=== PATIENT | female | born 1925 | race Caucasian/White ===

== ENCOUNTER 2016-06-04 11:27 | Inpatient (IN) | payer MEDICARE ==
[2016-06-04] MEDS ORDERED: Sodium Chloride 0.9% 5 ML Syringe FLUSH PRN ×2 (12:16→12:20)
[2016-06-04] MEDS ORDERED: Magnesium Hydroxide 400 MG/5 ML Susp 30 ML Cup PO PRN (12:16)
[2016-06-04] MEDS ORDERED: Sodium Chloride 0.9% 1,000 ML IV SCH (12:16)
[2016-06-04] MEDS ORDERED: Saliva Substitute Oral Spray 120 ML Bottle MUCMEM PRN (12:16)
[2016-06-04] MEDS: hydrALAZINE 10 MG Tab PO SCH ×2 (13:54→20:39)
[2016-06-04] MEDS: LEVOBUNOLOL 0.5% EYEBOTH SCH (17:43)
[2016-06-04] MEDS: Omeprazole 20 MG Cap.CR PO SCH (17:43)
[2016-06-04] MEDS: Latanoprost 0.005% Ophth Soln 2.5 ML Bottle EYEBOTH SCH (20:38)
[2016-06-04] MEDS: Losartan 50 MG Tab PO SCH (20:39)
[2016-06-05] MEDS: hydrALAZINE 10 MG Tab PO SCH ×2 (01:15→08:01)
[2016-06-05] MEDS: Acetaminophen 500 MG Tab PO PRN (04:16)
[2016-06-05] MEDS: Omeprazole 20 MG Cap.CR PO SCH ×2 (06:40→18:05)
[2016-06-05] MEDS: Levothyroxine 75 MCG Tab PO SCH (06:40)
[2016-06-05] MEDS: Multivitamins with Minerals/Iron/Folic Acid/Lycopene Tab PO SCH (08:01)
[2016-06-05] MEDS: Aspirin 81 MG Tab.EC PO SCH (08:02)
[2016-06-05] MEDS: Docusate Sodium 100 MG Cap PO SCH (08:02)
[2016-06-05] MEDS: Simvastatin 20 MG Tab PO SCH (08:03)
[2016-06-05] MEDS: LEVOBUNOLOL 0.5% EYEBOTH SCH ×2 (08:09→18:05)
[2016-06-05] MEDS: Metoprolol Succinate 25 MG Tab.ER PO SCH (09:16)
[2016-06-05] MEDS: Losartan 50 MG Tab PO SCH ×2 (09:18→20:28)
--- NOTE | 2016-06-05 10:32 | PCM.HP ---
H&P History of Present Illness - General Date of Service: 06/04/16 Admit Problem/Dx: Admission Diagnosis/Problem Admission Diagnosis/Problem Dizziness Source of Information: Patient, Old records, Provider, RN History Limitations: Reports: No limitations - History of Present Illness Initial Comments - Free Text/Narative: This very pleasant 89-year-old female was placed in swing bed status today mainly due to needing help with ambulation due to high fall risk due to dizziness. she was initially admitted in acute care status due to significant elevations in her systolic blood pressure which had been recalcitrant on many medications lasting for many months now. Yolie had an ambulatory blood pressure study about 2 months ago. She had been on Clonidine and Benicar. Day prior to admission the clonidine was discontinued by her bill hiker. Blood pressure prior to admission was fluctuating slightly. Orthostatic blood pressures lying down 152/82, sitting 164/80, standing 182/84 with a heart rate of 68 consistently. Patient was asymptomatic lying and sitting however upon standing she became lightheaded. Patient had not been taking any Lasix since she had not been having any swelling. Renal Doppler 2 days prior to acute admission for uncontrolled hypertension-no evidence of renal artery stenosis other than a benign cyst on her right kidney. Patient reported that when she took clonidine she felt like she was more dizzy. Major complaint was dizziness after taking these medications. Patient reports she has to sit down and hold onto walker because of the dizziness-patient has had hospitalizations in the past for her blood pressure systolically over 200. our initial plan on acute admission was to check serum aldosterone and aldosterone 24-hour urine studies to assess her for pheochromocytoma. she was recently started on hydralazine with some improvement. Outdoor Studies Professor did discontinue her clonidine day prior to admission and started her on low-dose metoprolol. Urologist, Dr. Bolton, was concerned about being too aggressive with her blood pressure due to the high-risk of falls/weakness- patient also lives alone and her daughter is currently out of town. Patient had also recently been treated for an upper respiratory infection on May 21 secondary to bacterial bronchitis-doxycycline. It was felt that she should be placed in swing bed status daily due to her dizziness and unsteady gait and for safety purposes. Physical therapy felt that they could work with her Right Hand Pain Score (Numeric/FACES): 6 - Related Data Allergies/Adverse Reactions: Allergies Allergy/AdvReac Type Severity Reaction Status Date / Time adhesive tape Allergy Cannot Verified 06/04/16 13:47 Remember Penicillins Allergy Rash Verified 06/04/16 13:47 Sulfa (Sulfonamide Allergy Rash Verified 06/04/16 13:47 Antibiotics) Home Medications: Home Meds Aspirin [Halfprin] 81 mg PO DAILY 08/24/13 [History] Latanoprost [Xalatan 0.005% Ophth Soln] 1 drop EYEBOTH BEDTIME 08/24/13 [History ] Multivitamin [Multi-Vitamin Daily] 1 each PO DAILY 08/24/13 [History] Lansoprazole [Prevacid] 30 mg PO BIDAC 12/24/15 [History] Acetaminophen [Tylenol Extra Strength] 500 mg PO Q4H PRN 02/13/16 [History] Baclofen [Lioresal] 5 mg PO TID PRN 02/13/16 [History] Furosemide [Lasix] 20 mg PO DAILY PRN 02/13/16 [History] Levobunolol [Betagan 0.5% Ophth Soln] 1 drop EYEBOTH BID 02/13/16 [History] Olmesartan [Benicar] 20 mg PO BID 02/13/16 [History] Pitavastatin [Livalo] 2 mg PO DAILY 02/13/16 [History] Carboxymethylcellulose/Lytes [Cj-Stir Oral [place]] 1 spray ORAL.INH Q4H PRN [History] Docusate Sodium [Colace] 100 mg PO DAILY 05/30/16 [History] Metoprolol Succinate [Toprol XL] 25 mg PO DAILY 05/30/16 [History] Carboxymethyl/Glycerin/Poly80 [Refresh Optive Advanced Drops] 1 - 2 drop EYEBOTH QID PRN 05/31/16 [History] Levothyroxine 75 mcg PO ACBREAKFAST 05/31/16 [History] Past Medical History HEENT History: Reports: Glaucoma Cardiovascular History: Reports: Blood clots/VTE/DVT, High cholesterol, Hypertension Gastrointestinal History: Reports: Chronic constipation, Chronic diarrhea, Diverticulosis, GERD Genitourinary History: Reports: UTI, recurrent 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: Endocrine/Metabolic History: Reports: Hypothyroidism Dermatologic History: Reports: Other (see below) Other Dermatologic History: Rash on extremities that comes and goes, flat "shadow"patches - Infectious Disease History Infectious Disease History: Reports: Chicken pox, Measles, Mumps, Pertussis ( whooping cough) - Past Surgical History Head Surgeries/Procedures: Reports: None HEENT Surgical History: Reports: Adenoidectomy, Tonsillectomy Cardiovascular Surgical History: Reports: Varicose GI Surgical History: Reports: Appendectomy, Hernia, abdominal Female Surgical History: Reports: Hysterectomy Musculoskeletal Surgical History: Reports: Knee replacement, Other (see below) Other Musculoskeletal Surgeries/Procedures:: bilateral Social & Family History - Family History HEENT: Reports: None Cardiac: Reports: High cholesterol GI: Reports: None : Reports: None OBGYN: Reports: None Musculoskeletal: Reports: None Neurological: Reports: None, CVA Psychiatric: Reports: None Endocrine/Metabolic: Reports: None Hematologic: Reports: None Dermatologic: Reports: None Oncologic: Reports: Brain, Breast, Lung - Tobacco Use Smoking Status *Q: Former Smoker Years of Tobacco use: 15 Packs/Tins Daily: 1 Used Tobacco, but Quit: Yes Month Tobacco Last Used: 45 yrs ago Second Hand Smoke Exposure: No - Caffeine Use Caffeine Use: Reports: Coffee - Recreational Drug Use Recreational Drug Use: No H&P Review of Systems - Review of Systems: Review Of Systems: See Below General: Reports: weakness. Denies: decreased appetite HEENT: Denies: vertigo, visual changes Pulmonary: Reports: no symptoms Cardiovascular: Reports: lightheadedness (upon standing) Gastrointestinal: Reports: No symptoms Genitourinary: Reports: no symptoms Musculoskeletal: Reports: no symptoms Skin: Reports: no symptoms Psychiatric: Reports: no symptoms Neurological: Reports: dizziness, weakness, gait disturbance. Denies: syncope, change in speech Hematologic/Lymphatic: Reports: no symptoms Immunologic: Reports: no symptoms Exam - Exam Exam: See Below - Vital Signs Vital Signs: Last Vital Signs Temp 98.0 F 06/05/16 07:00 Pulse 67 06/05/16 09:16 Resp 16 06/05/16 07:00 BP 197/80 H 06/05/16 09:18 Pulse Ox 95 06/05/16 07:30 Weight: 150 lb 14.4 oz - Exam Quality Assessment: No: supplemental oxygen General: alert, oriented, cooperative. No: mild distress HEENT: Mucosa moist & pink Neck: supple, trachea midline, 2 Lungs: Clear to auscultation, Normal respiratory effort Cardiovascular: regular rate, regular rhythm, other (at times bradycardic) Abdomen: normal bowel sounds, soft Rectal (Female) Exam: No: Bloody stool Back Exam: No: CVA tenderness (L), CVA tenderness (R) Extremities: 3, normal inspection, 10 Peripheral Pulses: 2+: radial (L), radial (R) Skin: warm, dry, intact Neurological: cranial nerves intact, reflexes equal bilateral Neuro Extensive - Mental Status: alert, oriented x3, normal mood/affect, normal cognition Neuro Extensive - Motor, Sensory, Reflexes: CN II-XII intact, normal gait, normal reflexes Psychiatric: alert, normal affect, normal mood *Q Meaningful Use (ADM) - VTE *Q VTE Criteria *Q: - Stroke *Q Stroke Criteria *Q: - AMI *Q AMI Criteria *Q: Problem List Initiated/Reviewed/Updated: Yes Orders Last 24hrs: Active Orders 24 hr Category Date Time Status Admission Diagnosis [ADT] Routine ADT 06/04/16 12:19 Ordered Admission Status [Patient Status] [ADT] Routine ADT 06/04/16 12:19 Ordered Activity as Tolerated [RC] .Routine Care 06/04/16 12:16 Active Ambulate [RC] ASDIRECTED Care 06/04/16 12:16 Active Oxygen Therapy [RC] PRN Care 06/04/16 12:16 Active Consult to Physical Therapy [PT Evaluation and Cons 06/04/16 12:16 Active Treatment] [CONS] Routine Heart Healthy Diet [DIET] Diet 06/04/16 Dinner Active Acetaminophen [Tylenol Extra Strength] Med 06/04/16 12:16 Active 500 mg PO Q4H PRN Aspirin [Halfprin] Med 06/05/16 09:00 Active 81 mg PO DAILY Carboxymethylcellulose/Lytes [Cj-Stir Oral [place]] Med 06/04/16 12:16 Active 0 ml MUCMEM Q4H PRN Docusate Sodium [Colace] Med 06/05/16 09:00 Active 100 mg PO DAILY FA/Lycopene/Lut/MV,Ca,Iron,Min [Centrum] Med 06/05/16 09:00 Active 1 tab PO DAILY Latanoprost [Xalatan 0.005% Ophth Soln] Med 06/04/16 21:00 Active 0 ml EYEBOTH BEDTIME Levobunolol [Betagan 0.5% Ophth Soln] Med 06/04/16 18:00 Active 0 ml EYEBOTH 0900,1800 Levothyroxine Med 06/05/16 07:00 Active 75 mcg PO ACBRK Losartan [Cozaar] Med 06/04/16 21:00 Active 50 mg PO BID Magnesium Hydroxide [Milk of Magnesia] Med 06/04/16 12:16 Active 30 ml PO DAILY PRN Metoprolol Succinate [Toprol XL] Med 06/05/16 09:00 Active 25 mg PO DAILY Omeprazole Med 06/04/16 17:00 Active 20 mg PO BIDAC Simvastatin [Zocor] Med 06/05/16 09:00 Active 20 mg PO DAILY hydrALAZINE [Apresoline] Med 06/04/16 14:00 Active 10 mg PO Q6H Convert IV to Saline Lock [OM.PC] Routine Oth 06/04/16 12:20 Ordered Code Status [Resuscitation Status] Routine Resus Stat 06/04/16 12:19 Ordered Medication Orders Acetaminophen (Tylenol Extra Strength) 500 mg PO Q4H PRN PRN Reason: Pain Last Admin: 06/05/16 04:16 Dose: 500 mg Aspirin (Halfprin) 81 mg PO DAILY [facility] Last Admin: 06/05/16 08:02 Dose: 81 mg Docusate Sodium (Colace) 100 mg PO DAILY [facility] Last Admin: 06/05/16 08:02 Dose: 100 mg Hydralazine HCl (Apresoline) 10 mg PO Q6H [facility] Last Admin: 06/05/16 08:01 Dose: 10 mg Admin: 06/05/16 01:15 Dose: 10 mg Admin: 06/04/16 20:39 Dose: 10 mg Admin: 06/04/16 13:54 Dose: 10 mg Latanoprost (Xalatan 0.005% Ophth Soln) 0 ml EYEBOTH BEDTIME [facility] Last Admin: 06/04/16 20:38 Dose: 1 drop Levobunolol HCl (Betagan 0.5% Ophth Soln) 0 ml EYEBOTH 0900,1800 [facility] Last Admin: 06/05/16 08:09 Dose: 1 drop Admin: 06/04/16 17:43 Dose: 1 drop Levothyroxine Sodium (Levothyroxine) 75 mcg PO ACBRK [facility] Last Admin: 06/05/16 06:40 Dose: 75 mcg Losartan Potassium (Cozaar) 50 mg PO BID [facility] Last Admin: 06/05/16 09:18 Dose: 50 mg Admin: 06/04/16 20:39 Dose: 50 mg Magnesium Hydroxide (Milk Of Magnesia) 30 ml PO DAILY PRN PRN Reason: constipation Metoprolol Succinate (Toprol Xl) 25 mg PO DAILY [facility] Last Admin: 06/05/16 09:16 Dose: 25 mg Multivitamins/Minerals (Centrum) 1 tab PO DAILY [facility] Last Admin: 06/05/16 08:01 Dose: 1 tab Omeprazole (Omeprazole) 20 mg PO BIDAC [facility] Last Admin: 06/05/16 06:40 Dose: 20 mg Admin: 06/04/16 17:43 Dose: 20 mg Saliva Substitute (Cj-Stir Oral [place]) 0 ml MUCMEM Q4H PRN PRN Reason: dry mouth Simvastatin (Zocor) 20 mg PO DAILY [facility] Last Admin: 06/05/16 08:03 Dose: 20 mg Assessment/Plan Comment:: HISTORY OF PRESENT ILLNESS This very pleasant 89-year-old female was placed in swing bed status today mainly due to needing help with ambulation due to high fall risk due to dizziness. she was initially admitted in acute care status due to significant elevations in her systolic blood pressure which had been recalcitrant on many medications lasting for many months now. Yolie had an ambulatory blood pressure study about 2 months ago. She had been on Clonidine and Benicar. Day prior to admission the clonidine was discontinued by her bill hiker. Blood pressure prior to admission was fluctuating slightly. Orthostatic blood pressures lying down 152/82, sitting 164/80, standing 182/84 with a heart rate of 68 consistently. Patient was asymptomatic lying and sitting however upon standing she became lightheaded. Patient had not been taking any Lasix since she had not been having any swelling. Renal Doppler 2 days prior to acute admission for uncontrolled hypertension-no evidence of renal artery stenosis other than a benign cyst on her right kidney. Patient reported that when she took clonidine she felt like she was more dizzy. Major complaint was dizziness after taking these medications. Patient reports she has to sit down and hold onto walker because of the dizziness-patient has had hospitalizations in the past for her blood pressure systolically over 200. our initial plan on acute admission was to check serum aldosterone and aldosterone 24-hour urine studies to assess her for pheochromocytoma. she was recently started on hydralazine with some improvement. Outdoor Studies Professor did discontinue her clonidine day prior to admission and started her on low-dose metoprolol. Urologist, Dr. Bolton, was concerned about being too aggressive with her blood pressure due to the high-risk of falls/weakness- patient also lives alone and her daughter is currently out of town. Patient had also recently been treated for an upper respiratory infection on May 21 secondary to bacterial bronchitis-doxycycline. A trial of transdermal nitroglycerin was started however this was discontinued. It was felt that she should be placed in swing bed status daily due to her dizziness and unsteady gait and for safety purposes. Physical therapy felt that they could work with her update, blood pressure while in physical therapy exercising every 5 minutes with average MET of 1.5--195/85, 205/82, 198/82, 209/92. IMPRESSION/PLAN Vkxanrduedig-Ibifjdzyile-xwxbucvv better since on hydralazine. Dbfgiopuv-aofmibsev-lhorbdmyxo Fatigue/malaise/generalized hmqgslta-orpxrjhngvghza-jqftbdoimf Rule out pheochromocytoma--has been ruled out Rule out hyperaldosteronism--this has been ruled out as her aldosterone/renin ratio low (positive indication >20-30) Hypothyroidism Gastroesophageal reflux disease Constipation-mild Hyperlipidemia-on cholesterol-lowering statin agent continue with physical therapy, increase hydralazine. consultation, spoke with the bill hiker Dr. Vale, she is highly doubtful dizziness is contributing to renal workup. Will perform MRA, MRI head and neck and carotid ultrasound. She concur with efforts to increasing hydralazine to 25mg TID. Dr Shen agrees with plan.
[2016-06-05] MEDS ORDERED: hydrALAZINE 25 MG Tab PO SCH (14:00)
[2016-06-05] MEDS: hydrALAZINE 50 MG Tab PO SCH ×2 (14:05→22:09)
[2016-06-05] MEDS: Latanoprost 0.005% Ophth Soln 2.5 ML Bottle EYEBOTH SCH (20:28)
[2016-06-06] MEDS: hydrALAZINE 50 MG Tab PO SCH ×3 (06:38→22:13)
[2016-06-06] MEDS: Levothyroxine 75 MCG Tab PO SCH (06:39)
[2016-06-06] MEDS: Omeprazole 20 MG Cap.CR PO SCH ×2 (06:40→17:04)
[2016-06-06] MEDS: LEVOBUNOLOL 0.5% EYEBOTH SCH ×2 (08:33→17:05)
[2016-06-06] MEDS: Acetaminophen 500 MG Tab PO PRN ×2 (08:35→16:20)
[2016-06-06] MEDS: Losartan 50 MG Tab PO SCH ×2 (08:36→20:51)
[2016-06-06] MEDS: Metoprolol Succinate 25 MG Tab.ER PO SCH (08:36)
[2016-06-06] MEDS: Aspirin 81 MG Tab.EC PO SCH (08:36)
[2016-06-06] MEDS: Docusate Sodium 100 MG Cap PO SCH (08:36)
[2016-06-06] MEDS: Multivitamins with Minerals/Iron/Folic Acid/Lycopene Tab PO SCH (08:36)
[2016-06-06] MEDS: Simvastatin 20 MG Tab PO SCH (08:37)
--- NOTE | 2016-06-06 09:16 | PCM.PN ---
- General Info Date of Service: 06/06/16 Functional Status: Reports: new symptoms (Patient complains of right lower extremity leg pain medial aspect--states she's had this pain ever since laser surgery for venous insufficiency years ago). Denies: pain controlled - Review of Systems General: Denies: fever HEENT: Reports: headaches (States her headaches are due to her cataract--she gets them occasionally) Pulmonary: Reports: no symptoms Cardiovascular: Reports: no symptoms Gastrointestinal: Reports: No symptoms Genitourinary: Reports: no symptoms Musculoskeletal: Reports: leg pain Neurological: Reports: no symptoms Psychiatric: Reports: no symptoms - Patient Data Vitals - most recent: Last Vital Signs Temp 97.4 F 06/06/16 06:28 Pulse 68 06/06/16 08:36 Resp 20 06/06/16 06:28 BP 146/69 H 06/06/16 08:36 Pulse Ox 97 06/06/16 07:35 Weight - most recent: 150 lb 14.4 oz I&O - last 24 hours: Intake & Output 06/05/16 06/06/16 06/06/16 22:59 06:59 14:59 Intake Total 500 50 Output Total 550 300 Balance -50 -250 Med Orders - Current: Current Medications Acetaminophen (Tylenol Extra Strength) 500 mg PO Q4H PRN PRN Reason: Pain Last Admin: 06/06/16 08:35 Dose: 500 mg Aspirin (Halfprin) 81 mg PO DAILY COUNTS INCLUDE 234 BEDS AT [facility] Last Admin: 06/06/16 08:36 Dose: 81 mg Docusate Sodium (Colace) 100 mg PO DAILY COUNTS INCLUDE 234 BEDS AT THE [facility] Last Admin: 06/06/16 08:36 Dose: 100 mg Hydralazine HCl (Apresoline) 25 mg PO Q8HR COUNTS INCLUDE 234 BEDS AT THE [facility] Last Admin: 06/06/16 06:38 Dose: 25 mg Latanoprost (Xalatan 0.005% Ophth Soln) 0 ml EYEBOTH BEDTIME COUNTS INCLUDE 234 BEDS AT THE [facility] Last Admin: 06/05/16 20:28 Dose: 1 drop Levobunolol HCl (Betagan 0.5% Ophth Soln) 0 ml EYEBOTH 0900,1800 COUNTS INCLUDE 234 BEDS AT THE [facility] Last Admin: 06/06/16 08:33 Dose: 1 drop Levothyroxine Sodium (Levothyroxine) 75 mcg PO ACBRK COUNTS INCLUDE 234 BEDS AT THE [facility] Last Admin: 06/06/16 06:39 Dose: 75 mcg Losartan Potassium (Cozaar) 50 mg PO BID COUNTS INCLUDE 234 BEDS AT THE [facility] Last Admin: 06/06/16 08:36 Dose: 50 mg Magnesium Hydroxide (Milk Of Magnesia) 30 ml PO DAILY PRN PRN Reason: constipation Metoprolol Succinate (Toprol Xl) 25 mg PO DAILY COUNTS INCLUDE 234 BEDS AT THE [facility] Last Admin: 06/06/16 08:36 Dose: 25 mg Multivitamins/Minerals (Centrum) 1 tab PO DAILY [facility]S INCLUDE 234 BEDS AT [facility] Last Admin: 06/06/16 08:36 Dose: 1 tab Omeprazole (Omeprazole) 20 mg PO BIDAC COUNTS INCLUDE 234 BEDS AT THE [facility] Last Admin: 06/06/16 06:40 Dose: 20 mg Saliva Substitute (Cj-Stir Oral [place]) 0 ml MUCMEM Q4H PRN PRN Reason: dry mouth Simvastatin (Zocor) 20 mg PO DAILY COUNTS INCLUDE 234 BEDS AT THE [facility] Last Admin: 06/06/16 08:37 Dose: 20 mg Discontinued Medications Hydralazine HCl (Apresoline) 10 mg PO Q6H COUNTS INCLUDE 234 BEDS AT THE [facility] Last Admin: 06/05/16 08:01 Dose: 10 mg Hydralazine HCl (Apresoline) 25 mg PO Q8HR COUNTS INCLUDE 234 BEDS AT THE [facility] - Exam Quality Assessment: No: supplemental oxygen General: alert, oriented, mild distress Lungs: Clear to auscultation, Normal respiratory effort Cardiovascular: regular rate, regular rhythm Abdomen: bowel sounds present, soft, no tenderness, no distension Extremities: other (allodynia left lower extremity, no palpable cord, no warmth , no edema, negative Homans). No: edema Skin: dry, intact Neurological: no new focal deficit Psy/Mental Status: alert, normal affect, normal mood - Problem List Review Problem List Initiated/Reviewed/Updated: Yes - My Orders Last 24 Hours: My Active Orders 06/05/16 09:00 Aspirin [Halfprin] 81 mg PO DAILY Docusate Sodium [Colace] 100 mg PO DAILY FA/Lycopene/Lut/MV,Ca,Iron,Min [Centrum] 1 tab PO DAILY Metoprolol Succinate [Toprol XL] 25 mg PO DAILY Simvastatin [Zocor] 20 mg PO DAILY 06/05/16 11:41 Communication Order [RC] DAILY 06/05/16 14:00 hydrALAZINE [Apresoline] 25 mg PO Q8HR - Plan Plan:: HISTORY OF PRESENT ILLNESS This very pleasant 89-year-old female was placed in swing bed status today mainly due to needing help with ambulation due to high fall risk due to dizziness. she was initially admitted in acute care status due to significant elevations in her systolic blood pressure which had been recalcitrant on many medications lasting for many months now. Yolie had an ambulatory blood pressure study about 2 months ago. She had been on Clonidine and Benicar. Day prior to admission the clonidine was discontinued by her airport tower controller. Blood pressure prior to admission was fluctuating slightly. Orthostatic blood pressures lying down 152/82, sitting 164/80, standing 182/84 with a heart rate of 68 consistently. Patient was asymptomatic lying and sitting however upon standing she became lightheaded. Patient had not been taking any Lasix since she had not been having any swelling. Renal Doppler 2 days prior to acute admission for uncontrolled hypertension-no evidence of renal artery stenosis other than a benign cyst on her right kidney. Patient reported that when she took clonidine she felt like she was more dizzy. Major complaint was dizziness after taking these medications. Patient reports she has to sit down and hold onto walker because of the dizziness-patient has had hospitalizations in the past for her blood pressure systolically over 200. our initial plan on acute admission was to check serum aldosterone and aldosterone 24-hour urine studies to assess her for pheochromocytoma. she was recently started on hydralazine with some improvement. Curing Machine Operator did discontinue her clonidine day prior to admission and started her on low-dose metoprolol. Urologist, Dr. Bolton, was concerned about being too aggressive with her blood pressure due to the high-risk of falls/weakness- patient also lives alone and her daughter is currently out of town. Patient had also recently been treated for an upper respiratory infection on May 21 secondary to bacterial bronchitis-doxycycline. A trial of transdermal nitroglycerin was started however this was discontinued. It was felt that she should be placed in swing bed status daily due to her dizziness and unsteady gait and for safety purposes. Physical therapy felt that they could work with her DIAGNOSTICS Renal ultrasound: 05/21/2016 1. There is no significant increase in flow velocity within either renal artery that suggests the patient has renal artery stenosis. No significant change in waveform is identified within either renal artery that would suggest renal artery stenosis or a post stenotic type waveform. 2. Kidneys are somewhat small though are small bilaterally. I suspect this is probably related to the patient's age. 3. There is no obstruction of either kidney. 4. There may be a mildly complicated cystic lesion at the upper aspect of the right kidney that I think is benign. There is an additional cyst or parapelvic cyst that extends into the renal sinus fat though this actually looks fairly similar compared with the earlier study of 2012 and I think this finding is benign. Neither kidney is obstructed. 6. No other significant abnormality is identified by the ultrasound. Abdominal KUB: 05/30/2016 There is a nonobstructive bowel gas pattern. Unchanged phleboliths noted in the pelvis. No concerning calcifications identified. No acute abnormality seen. Chest x-ray: 05/21/2016 No acute abnormality Head CT: 06/04/2016 No acute intracranial findings, mild changes of acute paranasal sinusitis, chronic small vessel disease CODE STATUS, full code UPDATE: NEW CONCERNS TODAY blood pressure improved today Patient complains of right lower extremity leg pain medial aspect--states she's had this pain ever since laser surgery for venous insufficiency years ago. Blood pressure much improved, has not gotten up-to-date to determine any dizziness yet. Hydralazine was increased yesterday IMPRESSION/PLAN Dahyarkvyydx-Hajxfamhzsx-frofcgxr with hydralazine. Blood pressure much improved. We'll monitor her blood pressure today Dizziness; Fatigue/malaise/generalized weakness; receiving physical therapy Rule out pheochromocytoma--has been ruled out Rule out hyperaldosteronism--this has been ruled out as her aldosterone/renin ratio low (positive indication >20-30) Hypothyroidism Gastroesophageal reflux disease Constipation-mild Hyperlipidemia-on cholesterol-lowering statin agent continue with physical therapy, consultation, spoke with the airport tower controller Dr. Vale, she is highly doubtful dizziness is contributing to renal workup. Will perform MRA, MRI head and neck and carotid ultrasound. She concur with efforts to increasing hydralazine to 25mg TID.
[2016-06-06] MEDS: Latanoprost 0.005% Ophth Soln 2.5 ML Bottle EYEBOTH SCH (20:51)
[2016-06-07] MEDS: Omeprazole 20 MG Cap.CR PO SCH ×2 (06:27→18:06)
[2016-06-07] MEDS: Levothyroxine 75 MCG Tab PO SCH (06:27)
[2016-06-07] MEDS: hydrALAZINE 50 MG Tab PO SCH ×3 (06:27→21:08)
[2016-06-07] MEDS: Multivitamins with Minerals/Iron/Folic Acid/Lycopene Tab PO SCH (09:11)
[2016-06-07] MEDS: LEVOBUNOLOL 0.5% EYEBOTH SCH ×2 (09:11→18:06)
[2016-06-07] MEDS: Docusate Sodium 100 MG Cap PO SCH (09:11)
[2016-06-07] MEDS: Simvastatin 20 MG Tab PO SCH (09:12)
[2016-06-07] MEDS: Metoprolol Succinate 25 MG Tab.ER PO SCH (09:12)
[2016-06-07] MEDS: Aspirin 81 MG Tab.EC PO SCH (09:12)
[2016-06-07] MEDS: Losartan 50 MG Tab PO SCH ×2 (09:13→21:09)
[2016-06-07] MEDS: Latanoprost 0.005% Ophth Soln 2.5 ML Bottle EYEBOTH SCH (21:09)
[2016-06-08] MEDS: Omeprazole 20 MG Cap.CR PO SCH (06:36)
[2016-06-08] MEDS: hydrALAZINE 50 MG Tab PO SCH (06:37)
[2016-06-08] MEDS: Levothyroxine 75 MCG Tab PO SCH (06:37)
[2016-06-08 06:45] VITALS: BP 143/64
[2016-06-08] MEDS: Multivitamins with Minerals/Iron/Folic Acid/Lycopene Tab PO SCH (08:20)
[2016-06-08] MEDS: LEVOBUNOLOL 0.5% EYEBOTH SCH (08:20)
[2016-06-08] MEDS: Losartan 50 MG Tab PO SCH (08:21)
[2016-06-08] MEDS: Aspirin 81 MG Tab.EC PO SCH (08:21)
[2016-06-08] MEDS: Docusate Sodium 100 MG Cap PO SCH (08:21)
[2016-06-08] MEDS: Metoprolol Succinate 25 MG Tab.ER PO SCH (08:21)
[2016-06-08] MEDS: Simvastatin 20 MG Tab PO SCH (08:22)
--- NOTE | 2016-06-11 11:02 | DISCH ---
The patient was admitted in inpatient initially on 05/30/2016, switched to swing bed on 06/04/2016, and discharged from swing bed 06/08/2016. FINAL DIAGNOSES: 1. Accelerated hypertension, much improved with hydralazine. 2. Dizziness, resolved. 3. Fatigue, malaise, generalized weakness, received physical therapy, much improved rule out pheochromocytoma, this has been ruled out. 4. Rule out hyperaldosteronism, this has been ruled out as her aldosterone/renin ratio is low. 5. Hypothyroidism. 6. Gastroesophageal reflux disease. 7. Hyperlipidemia. 8. Glaucoma. 9. Chronic small-vessel disease. HISTORY: This 89-year-old female was initially placed in swing bed status mainly due to the need for help with ambulation due to high fall risk because of her dizziness that was associated with her accelerated hypertension. Her systolic blood pressure on admissions was sometimes over 200, it had been recalcitrant to many of her medications lasting for many months now. She even had ambulatory blood pressure study about 2 months ago. She had been on clonidine and Benicar; however, the day prior to her initial admission, the clonidine was discontinued by her engineering leader and she was placed on a beta dilma. Her orthostatic blood pressure lying down was 152/82, sitting 164/80, standing 182/84 with a heart rate 68, which vacillated very much. So the cause for her dizziness is likely not a renal problem, renal Dopplers two days prior to admission for uncontrolled hypertension showed no evidence of renal artery stenosis other than a benign cyst on her right kidney. She also had a chest x- ray which showed no acute abnormality. Abdominal KUB showed a nonobstructive bowel gas pattern. She had a head CT on 06/04/2016 which showed no acute intracranial findings other than some mild changes of acute paranasal sinusitis, chronic small-vessel disease. She also had an MRA which is not concerning for any arterial flow stenosis or stroke. She still has an MRA of her neck that is pending. HOSPITAL COURSE: Hospital course went fairly well. She did receive physical therapy and did well. At times, she did have some elevated blood pressure; however, since we placed her on hydralazine initially at 10 mg t.i.d. then we increased that to 25 mg t.i.d., she did much better. Sales Representative Advertising was consulted regarding the results. She did concur with increased hydralazine. She will be discharged on hydralazine, ARB, and continue with beta dilma, metoprolol. However, we will reduce her ARB by 50%. PHYSICAL EXAMINATION: VITAL SIGNS: On discharge, blood pressure 143/64, temperature 97.7, heart rate 63, O2 sats 94% this is on room air, respiratory rate 16. LUNGS: Clear to auscultation. CV: Regular rate and rhythm. No murmur. Neurological: Cranial nerves II through XII grossly intact. She was ambulatory without the use of a walker. Dizziness had resolved. Pupils equal and reactive to light. MEDICATION: Medication adjustments and/or additions on discharge: Losartan decreased from 50 mg b.i.d. to 25 mg daily, continue with metoprolol 25 mg p.o. daily, and hydralazine 25 mg p.o. q.8 hours. She can continue all other her home medications; however, we did discontinue her Benicar. DISPOSITION: The patient will be discharged home in the care of her daughter. She will have a followup appointment at [facility]. She got MRA of the neck as scheduled for next . She will follow up with myself at [facility] after that. She was given specific instructions to take her blood pressure daily, report any systolic blood pressure greater than 190. I educated the family regarding we will have to accept a higher than normal blood pressure as long as she does not have any dizziness, she does not report any signs or symptoms of stroke, weakness, slurred speech, muscle weakness or any headaches or any ongoing dizziness. The patient concurs with plan. MEDICAL DECISION MAKIN minutes was spent on this discharge planning and process, pharmacology consultation, physical therapy consultation. /[id number]/MODL MTDD
== END 2016-06-08 10:47 | disposition home or self-care (01) | DRG 305 ==
LOC: KA.MS 11:30
PROVIDERS: ADMIT Nurse Practitioner Family; ATTEND Nurse Practitioner Family
DX: I10 Essential (primary) hypertension (principal); R42 Dizziness and giddiness; R53.83 Other fatigue; E26.9 Hyperaldosteronism, unspecified; E03.9 Hypothyroidism, unspecified; K21.9 Gastro-esophageal reflux disease without esophagitis; E78.5 Hyperlipidemia, unspecified; H40.9 Unspecified glaucoma; I73.9 Peripheral vascular disease, unspecified; Z91.81 History of falling; Z88.0 Allergy status to penicillin; Z88.2 Allergy status to sulfonamides; Z79.82 Long term (current) use of aspirin; Z79.899 Other long term (current) drug therapy; Z87.891 Personal history of nicotine dependence
CPT/HCPCS: 70544; 93880; 97110-GP; 97162-GP; A9270-GY

== ENCOUNTER 2016-08-04 20:43 | Emergency (ER) | payer MEDICARE ==
[2016-08-04] MEDS ORDERED: Losartan 50 MG Tab PO ONE (21:51)
--- NOTE | 2016-08-04 21:57 | EDM.PDOC ---
ED HISTORY OF PRESENT ILLNESS - General Stated Complaint: HIGH BLOOD PRESSURE Time Seen by Provider: 08/04/16 21:20 Source of Information: Reports: Patient, Family (DAUGHTER) History Limitations: Reports: No limitations - History of Present Illness INITIAL COMMENTS - FREE TEXT/NARRATIVE: PT STATES SHE HAD HTN MEDICATION CHANGE ON 07/31 AND HAS HAD HIGH BLOOD PRESSURE READINGS SINCE. NOW WITH RIGHT SIDED NECK PAIN. DENIES FEVER, N/V, MILLS, CP, SOB, FALL, NECK INJURY. ADMITS TO ACCIDENTALLY SLEEPING ON CHAIR LAST NIGHT. Location, General: Reports: neck Quality: Reports: Ache Improves with: Reports: None Worsens with: Reports: Movement Associated Symptoms (General): Reports: no other symptoms. Denies: chest pain, cough, fever/chills, headaches, nausea/vomiting, shortness of breath - Related Data Allergies/ADRs: Allergies Allergy/AdvReac Type Severity Reaction Status Date / Time adhesive tape Allergy Cannot Verified 08/04/16 20:54 Remember Penicillins Allergy Rash Verified 08/04/16 20:54 Sulfa (Sulfonamide Allergy Rash Verified 08/04/16 20:54 Antibiotics) Home Meds: Home Meds Aspirin [Halfprin] 81 mg PO DAILY 08/24/13 [History] Latanoprost [Xalatan 0.005% Ophth Soln] 1 drop EYEBOTH BEDTIME 08/24/13 [History ] Multivitamin [Multi-Vitamin Daily] 1 each PO DAILY 08/24/13 [History] Lansoprazole [Prevacid] 30 mg PO BIDAC 12/24/15 [History] Acetaminophen [Tylenol Extra Strength] 500 mg PO Q4H PRN 02/13/16 [History] Baclofen [Lioresal] 5 mg PO TID PRN 02/13/16 [History] Furosemide [Lasix] 20 mg PO DAILY PRN 02/13/16 [History] Levobunolol [Betagan 0.5% Ophth Soln] 1 drop EYEBOTH BID 02/13/16 [History] Pitavastatin [Livalo] 2 mg PO DAILY 02/13/16 [History] Carboxymethylcellulose/Lytes [Cj-Stir Oral [place]] 1 spray ORAL.INH Q4H PRN [History] Docusate Sodium [Colace] 100 mg PO DAILY PRN 05/30/16 [History] Metoprolol Succinate [Toprol XL] 50 mg PO DAILY 05/30/16 [History] Carboxymethyl/Glycerin/Poly80 [Refresh Optive Advanced Drops] 1 - 2 drop EYEBOTH QID PRN 05/31/16 [History] Losartan [Cozaar] 50 mg PO DAILY #90 tablet 06/08/16 [Rx] Levothyroxine Sodium [Synthroid] 88 mcg PO ACBREAKFAST 08/04/16 [History] Past Medical History HEENT History: Reports: Glaucoma Cardiovascular History: Reports: Blood clots/VTE/DVT, High cholesterol, Hypertension Gastrointestinal History: Reports: Chronic constipation, Chronic diarrhea, Diverticulosis, GERD Genitourinary History: Reports: UTI, recurrent 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: Reports: Endocrine/Metabolic History: Reports: Hypothyroidism Dermatologic History: Reports: Other (see below) Other Dermatologic History: Rash on extremities that comes and goes, flat "shadow"patches - Infectious Disease History Infectious Disease History: Reports: Chicken pox, Measles, Mumps, Pertussis ( whooping cough) - Past Surgical History Head Surgeries/Procedures: Reports: None HEENT Surgical History: Reports: Adenoidectomy, Tonsillectomy Cardiovascular Surgical History: Reports: Varicose GI Surgical History: Reports: Appendectomy, Hernia, abdominal Female Surgical History: Reports: Hysterectomy Musculoskeletal Surgical History: Reports: Knee replacement, Other (see below) Other Musculoskeletal Surgeries/Procedures:: bilateral Social & Family History - Family History HEENT: Reports: None Cardiac: Reports: High cholesterol GI: Reports: None : Reports: None OBGYN: Reports: None Musculoskeletal: Reports: None Neurological: Reports: None, CVA Psychiatric: Reports: None Endocrine/Metabolic: Reports: None Hematologic: Reports: None Dermatologic: Reports: None Oncologic: Reports: Brain, Breast, Lung - Tobacco Use Smoking Status *Q: Former Smoker Years of Tobacco use: 15 Packs/Tins Daily: 1 Used Tobacco, but Quit: Yes Month Tobacco Last Used: 45 yrs ago Second Hand Smoke Exposure: No - Caffeine Use Caffeine Use: Reports: Coffee - Recreational Drug Use Recreational Drug Use: No ED ROS GENERAL - Review of Systems Review Of Systems: ROS reveals no pertinent complaints other than HPI. Constitutional: Reports: no symptoms HEENT: Reports: No symptoms Respiratory: Reports: No Symptoms Cardiovascular: Reports: No symptoms Endocrine: Reports: no symptoms GI/Abdominal: Reports: No symptoms : Reports: no symptoms Musculoskeletal: Reports: neck pain Skin: Reports: no symptoms Neurological: Reports: No Symptoms Psychiatric: Reports: No symptoms Hematologic/Lymphatic: Reports: no symptoms Immunologic: Reports: no symptoms ED EXAM, GENERAL - Physical Exam Exam: See Below Exam Limited By: No limitations General Appearance: alert, WD/WN, no apparent distress Eye Exam: bilateral eye: normal inspection Nose: normal inspection, no blood Throat/Mouth: Normal inspection, Normal oropharynx, No airway compromise Head: atraumatic, normocephalic Neck: supple, tender lateral (RIGHT). No: full range of motion, lymphadenopathy (L), lymphadenopathy (R), tender midline Respiratory/Chest: no respiratory distress, lungs clear, normal breath sounds, no accessory muscle use, chest non-tender Cardiovascular: regular rate, rhythm, no murmur GI/Abdominal: normal bowel sounds, soft, non tender Extremities: normal inspection, no pedal edema Neurological: alert, oriented, normal cognition Psychiatric: normal affect, normal mood Skin Exam: Warm, Dry, Intact, Normal color, No rash Lymphatic: no adenopathy Course - Vital Signs Last Recorded V/S: Last Vital Signs Temp 98.6 F 08/04/16 20:56 Pulse 56 L 08/04/16 20:56 Resp 20 08/04/16 20:56 BP 188/82 H 08/04/16 22:01 Pulse Ox 96 08/04/16 20:56 - Orders/Labs/Meds Meds: Medications Discontinued Medications Generic Name Dose Route Start Last Admin Trade Name Freq PRN Reason Stop Dose Admin Losartan Potassium 50 mg 08/04/16 21:51 08/04/16 22:01 Cozaar PO 08/04/16 21:52 50 mg ONETIME ONE Administration - Re-Assessments/Exams Free Text/Narrative Re-Assessment/Exam: 08/04/16 22:45 PT AFEBRILE, NONTOXIC APPEARING, DENIES CP, SOB, OR MILLS.. BP RANGING 180-194/80' S AFTER LOSARTAN GIVEN. ADVISING PT TO TAKE METOPROLOL IN AM AND LOSARTAN IN PM. F/U AT [facility] ON SATURDAY. RETURN TO ER SOONER IF SYMPTOMS DEVELOP 08/04/16 22:47 STIFF NECK / MUSCLE STRAIN 08/04/16 22:49 Departure - Departure Time of Disposition: 22:49 Disposition: Home, Self-Care 01 Condition: good Clinical Impression: Hypertension, poor control Instructions: Hypertension, [id number] Additional Instructions: FOLLOW UP AT [facility] ON SATURDAY. RETURN TO ER SOONER IF CP, SOB, OR MILLS DEVELOPS TAKE METOPROLOL IN AM AND LOSARTAN IN PM UNTIL SEEN BY [facility] - Assessment/Plan Assessment:: HYPERTENSION Plan: MEDS TO BE TAKEN SPLIT AND NOT ALL AT ONE TIME. WILL F/U AT [facility] ON SATURDAY
[2016-08-05 11:14] VITALS: BP 184/04
== END 2016-08-04 23:05 | disposition home or self-care (01) ==
LOC: KA.ED 20:43
DX: I10 Essential (primary) hypertension (principal); E78.00 Pure hypercholesterolemia, unspecified; E03.9 Hypothyroidism, unspecified; K21.9 Gastro-esophageal reflux disease without esophagitis; Z90.49 Acquired absence of other specified parts of digestive tract; Z90.710 Acquired absence of both cervix and uterus; Z87.891 Personal history of nicotine dependence; Z91.09 Other allergy status, other than to drugs and biological substances; Z88.2 Allergy status to sulfonamides; Z88.0 Allergy status to penicillin; Z79.82 Long term (current) use of aspirin; Z79.899 Other long term (current) drug therapy
CPT/HCPCS: 99283; A9270

== ENCOUNTER 2016-08-12 20:26 | Emergency (ER) | payer MEDICARE ==
[2016-08-12] MEDS ORDERED: Sodium Chloride 0.9% 5 ML Syringe FLUSH PRN (20:39)
--- NOTE | 2016-08-12 20:41 | EDM.PDOC ---
ED HPI GENERAL MEDICAL PROBLEM - General Chief Complaint: General Stated Complaint: HYPERTENSION Time Seen by Provider: 08/12/16 20:41 Source of Information: Reports: Patient History Limitations: Reports: No limitations - History of Present Illness INITIAL COMMENTS - FREE TEXT/NARRATIVE: 89 yo wf with long standing history of uncontrolled hypertension presents to ER complaining of generalized weakness and concern regarding control of her blood pressure. Pt reports she had her blood pressure medication changed 1 week ago due to poor control. Pt reports she became concerned tonight with the fact that her blood pressure wasn't coming down. BP at home 220/74. Pt denies headache, denies chest pain, denies shortness of breath. Pt reports mild positional dizziness but denies syncope or near syncope. Onset: today Duration: Day(s): (1) Location: Denies: head, chest, back Severity: mild Improves with: Reports: None Worsens with: Reports: None Associated Symptoms: Reports: malaise. Denies: confusion, chest pain, diaphoresis, fever/chills, headaches, nausea/vomiting, shortness of breath, syncope - Related Data Allergies Allergy/AdvReac Type Severity Reaction Status Date / Time adhesive tape Allergy Cannot Verified 08/12/16 21:08 Remember Penicillins Allergy Rash Verified 08/12/16 21:08 Sulfa (Sulfonamide Allergy Rash Verified 08/12/16 21:08 Antibiotics) Home Meds: Home Meds Aspirin [Halfprin] 81 mg PO DAILY 08/24/13 [History] Latanoprost [Xalatan 0.005% Ophth Soln] 1 drop EYEBOTH BEDTIME 08/24/13 [History ] Multivitamin [Multi-Vitamin Daily] 1 each PO DAILY 08/24/13 [History] Lansoprazole [Prevacid] 30 mg PO BIDAC 12/24/15 [History] Acetaminophen [Tylenol Extra Strength] 500 mg PO Q4H PRN 02/13/16 [History] Baclofen [Lioresal] 5 mg PO TID PRN 02/13/16 [History] Furosemide [Lasix] 20 mg PO DAILY PRN 02/13/16 [History] Levobunolol [Betagan 0.5% Ophth Soln] 1 drop EYEBOTH BID 02/13/16 [History] Pitavastatin [Livalo] 2 mg PO DAILY 02/13/16 [History] Carboxymethylcellulose/Lytes [Cj-Stir Oral [place]] 1 spray ORAL.INH Q4H PRN [History] Docusate Sodium [Colace] 100 mg PO DAILY PRN 05/30/16 [History] Metoprolol Succinate [Toprol XL] 50 mg PO DAILY 05/30/16 [History] Carboxymethyl/Glycerin/Poly80 [Refresh Optive Advanced Drops] 1 - 2 drop EYEBOTH QID PRN 05/31/16 [History] Levothyroxine Sodium [Synthroid] 88 mcg PO ACBREAKFAST 08/04/16 [History] Losartan [Cozaar] 50 mg PO BID 08/12/16 [History] Past Medical History HEENT History: Reports: Glaucoma Cardiovascular History: Reports: Blood clots/VTE/DVT, High cholesterol, Hypertension Gastrointestinal History: Reports: Chronic constipation, Chronic diarrhea, Diverticulosis, GERD Genitourinary History: Reports: UTI, recurrent 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: Endocrine/Metabolic History: Reports: Hypothyroidism Dermatologic History: Reports: Other (see below) Other Dermatologic History: Rash on extremities that comes and goes, flat "shadow"patches - Infectious Disease History Infectious Disease History: Reports: Chicken pox, Measles, Mumps, Pertussis ( whooping cough) - Past Surgical History Head Surgeries/Procedures: Reports: None HEENT Surgical History: Reports: Adenoidectomy, Tonsillectomy Cardiovascular Surgical History: Reports: Varicose GI Surgical History: Reports: Appendectomy, Hernia, abdominal Female Surgical History: Reports: Hysterectomy Musculoskeletal Surgical History: Reports: Knee replacement, Other (see below) Other Musculoskeletal Surgeries/Procedures:: bilateral Social & Family History - Family History HEENT: Reports: None Cardiac: Reports: High cholesterol GI: Reports: None : Reports: None OBGYN: Reports: None Musculoskeletal: Reports: None Neurological: Reports: None, CVA Psychiatric: Reports: None Endocrine/Metabolic: Reports: None Hematologic: Reports: None Dermatologic: Reports: None Oncologic: Reports: Brain, Breast, Lung - Tobacco Use Smoking Status *Q: Former Smoker Years of Tobacco use: 15 Packs/Tins Daily: 1 Used Tobacco, but Quit: Yes Month Tobacco Last Used: 45 yrs ago Second Hand Smoke Exposure: No - Caffeine Use Caffeine Use: Reports: Coffee - Recreational Drug Use Recreational Drug Use: No ED ROS GENERAL - Review of Systems Review Of Systems: See Below Constitutional: Reports: no symptoms HEENT: Reports: No symptoms Respiratory: Reports: No Symptoms Cardiovascular: Reports: No symptoms Endocrine: Reports: no symptoms GI/Abdominal: Reports: No symptoms : Reports: no symptoms Musculoskeletal: Reports: no symptoms Skin: Reports: no symptoms Neurological: Reports: No Symptoms Psychiatric: Reports: No symptoms Hematologic/Lymphatic: Reports: no symptoms Immunologic: Reports: no symptoms ED EXAM, GENERAL - Physical Exam Exam: See Below Exam Limited By: No limitations General Appearance: alert, WD/WN, no apparent distress Eye Exam: bilateral eye: EOMI, PERRL Ears: normal external exam, normal canal, hearing grossly normal, normal TMs Nose: normal inspection, normal mucosa, no blood Throat/Mouth: Normal inspection, Normal lips, Normal teeth, Normal gums, Normal oropharynx, Normal voice, No airway compromise Head: atraumatic, normocephalic Neck: normal inspection, supple, non-tender, full range of motion Respiratory/Chest: no respiratory distress, lungs clear, normal breath sounds, no accessory muscle use, chest non-tender Cardiovascular: normal peripheral pulses, regular rate, rhythm, no edema, no gallop, no JVD, no murmur, no rub GI/Abdominal: normal bowel sounds, soft, non tender, no organomegaly, no distention, no abnormal bruit, no mass Back Exam: normal inspection, full range of motion, NT Extremities: normal inspection, normal range of motion, non-tender, normal capillary refill, no pedal edema Neurological: alert, oriented, CN II-XII intact, normal cognition, normal gait, normal reflexes, no motor/sensory deficits Psychiatric: normal affect, normal mood Skin Exam: Warm, Dry, Intact, Normal color, No rash Lymphatic: no adenopathy EKG INTERPRETATION EKG Date: 08/12/16 Time: 21:00 Rhythm: NSR Rate (beats/min): 55 [place]: normal P-wave: present QRS: normal ST-T: normal QT: normal Course - Vital Signs Last Recorded V/S: Last Vital Signs Temp 36.1 C 08/12/16 20:48 Pulse 55 L 08/12/16 20:48 Resp 16 08/12/16 20:48 BP 210/51 H 08/12/16 20:48 Pulse Ox 96 08/12/16 20:48 - Orders/Labs/Meds Orders: Active Orders 24 hr Category Date Time Status EKG Documentation Completion [RC] ASDIRECTED Care 08/12/16 20:40 Active Peripheral IV Care [RC] . DIRECTED Care 08/12/16 20:40 Active Chest 1V Frontal [CR] Stat Exams 08/12/16 20:39 Taken Sodium Chloride 0.9% [Syrex Flush] Med 08/12/16 20:39 Active 5 ml FLUSH Q8HR PRN Peripheral IV Insertion Adult [OM.PC] Routine Oth 08/12/16 20:39 Ordered EKG 12 Lead [EK] Routine Ther 08/12/16 20:39 Ordered Medication Orders Sodium Chloride (Syrex Flush) 5 ml FLUSH Q8HR PRN PRN Reason: Keep Vein Open Labs: Laboratory Tests 08/12/16 08/12/16 08/12/16 Range/Units 09:50 20:33 20:33 WBC 6.2 (5.0-10.0) 10^3/uL RBC 3.83 (3.80-5.50) 10^6/uL Hgb 11.4 L (12.0-16.0) g/dL Hct 33.6 L (37.0-47.0) % MCV 87.7 (82.0-92.0) fL MCH 29.9 (27.0-31.0) pg MCHC 34.1 (32.0-36.0) g/dL RDW 13.3 (11.5-14.5) % Plt Count 330 H (150-300) 10^3/uL MPV 7.8 (7.4-10.4) fL Neut % (Auto) 60.5 (50.0-70.0) % Lymph % (Auto) 25.6 (20.0-40.0) % [place] % (Auto) 11.5 H (2.0-8.0) % Eos % (Auto) 2.0 (1.0-3.0) % Baso % (Auto) 0.4 (0.0-1.0) % Neut # (Auto) 3.8 (2.5-7.0) 10^3/uL Lymph # (Auto) 1.6 (1.0-4.0) 10^3/uL [place] # (Auto) 0.7 (0.1-0.8) 10^3/uL Eos # (Auto) 0.1 (0.1-0.3) 10^3/uL Baso # (Auto) 0.0 (0.0-0.1) 10^3/uL Sodium 138 (136-145) mmol/L Potassium 4.3 (3.3-5.3) mmol/L Chloride 103 (98-115) mmol/L Carbon Dioxide 28.7 (21.0-32.0) mmol/L BUN 16 (6-25) mg/dL Creatinine 0.82 (0.51-1.17) mg/dL Est Cr Clr Drug Dosing 37.51 mL/min Estimated GFR (MDRD) > 60 mL/min Glucose 130 H (70-110) mg/dL Calcium 8.4 L (8.7-10.3) mg/dL Total Bilirubin 0.3 (0.2-1.0) mg/dL AST 12 L (15-37) U/L ALT 12 (12-78) U/L Alkaline Phosphatase 81 (46-116) IU/L Creatine Kinase 34 (26-276) U/L CK-MB (CK-2) 0.90 (0.00-4.30) ng/mL Troponin I 0.04 (0.00-0.070) ng/mL Total Protein 6.9 (6.4-8.2) g/dL Albumin 3.24 (3.00-4.80) g/dL Specimen Type Urinblad Urine Color Light yellow (YELLOW) Urine Appearance Clear (CLEAR) Urine pH 5.5 (5.0-9.0) Ur Specific [place] <= 1.005 (1.005-1.030) Urine Protein Negative (NEGATIVE) mg/dL Urine Glucose (UA) Negative (NEGATIVE) mg/dL Urine Ketones Negative (NEGATIVE) mg/dL Urine Occult Blood Trace-intact H (NEGATIVE) Urine Nitrite Negative (NEGATIVE) Urine Bilirubin Negative (NEGATIVE) Urine Urobilinogen 0.2 (0.2-1.0) E.U./dL Ur Leukocyte Esterase Negative (NEGATIVE) Urine RBC 0-5 /HPF Urine WBC Not seen /HPF Ur Epithelial Cells Few /LPF Urine Bacteria Not seen (NONE TO FEW) /HPF Meds: Medications Generic Name Dose Route Start Last Admin Trade Name Freq PRN Reason Stop Dose Admin Sodium Chloride 5 ml 08/12/16 20:39 Syrex Flush FLUSH Q8HR PRN Keep Vein Open - Radiology Interpretation Free Text/Narrative:: CXR- NAD Departure - Departure Time of Disposition: 22:08 Disposition: Home, Self-Care 01 Condition: good Clinical Impression: Generalized weakness, Bradycardia, Dizzinesses, Hypertension, poor control Hypertension Qualifiers: Hypertension type: essential hypertension Qualified Code(s): I10 - Essential ( primary) hypertension Instructions: Hypertension, [id number], Near-Syncope Referrals: Jaspreet Montes De Oca FAMILY LITERACY COORDINATOR [Primary Care Provider] - - My Orders Last 24 Hours: My Active Orders 08/12/16 20:39 Chest 1V Frontal [CR] Stat Sodium Chloride 0.9% [Syrex Flush] 5 ml FLUSH Q8HR PRN Peripheral IV Insertion Adult [OM.PC] Routine EKG 12 Lead [EK] Routine 08/12/16 20:40 EKG Documentation Completion [RC] ASDIRECTED Peripheral IV Care [RC] . DIRECTED - Assessment/Plan Last 24 Hours: My Active Orders 08/12/16 20:39 Chest 1V Frontal [CR] Stat Sodium Chloride 0.9% [Syrex Flush] 5 ml FLUSH Q8HR PRN Peripheral IV Insertion Adult [OM.PC] Routine EKG 12 Lead [EK] Routine 08/12/16 20:40 EKG Documentation Completion [RC] ASDIRECTED Peripheral IV Care [RC] . DIRECTED Assessment:: 1. hypertension- improved- currently 160/58 2. generalized weakness Plan: 1. follow up with [facility] as scheduled 08/14/16 2. return to ER for worsening symptoms
[2016-08-12 21:21] LABS: CHLORIDE,CL 103 mmol/L (98-115); SODIUM,NA 138 mmol/L (136-145)
[2016-08-12 23:20] VITALS: BP 160/58
== END 2016-08-12 22:20 | disposition home or self-care (01) ==
LOC: KA.ED 20:26
DX: R53.1 Weakness (principal); I10 Essential (primary) hypertension; R00.1 Bradycardia, unspecified; E03.9 Hypothyroidism, unspecified; E78.00 Pure hypercholesterolemia, unspecified; K21.9 Gastro-esophageal reflux disease without esophagitis; Z90.49 Acquired absence of other specified parts of digestive tract; Z88.0 Allergy status to penicillin; Z88.2 Allergy status to sulfonamides; Z79.899 Other long term (current) drug therapy; Z90.710 Acquired absence of both cervix and uterus
CPT/HCPCS: 36415; 71010; 80053; 81001; 82550; 82553; 84484; 85025; 93005; 99284

== ENCOUNTER 2017-01-08 11:48 | Day surgery (SDC) | payer MEDICARE ==
[2017-01-08] MEDS ORDERED: Gatifloxacin 0.5% Ophth Soln 2.5 ML Bot EYERT SCH (11:55)
[2017-01-08] MEDS ORDERED: Sodium Chloride 0.9% 5 ML Syringe FLUSH PRN (11:55)
[2017-01-08] MEDS ORDERED: Lactated Ringers 1,000 ML IV SCH (11:55)
[2017-01-08] MEDS: Cyclopentolate 1% Opth Soln 2 ML Bottle EYERT SCH ×3 (13:05→13:27)
[2017-01-08] MEDS: Phenylephrine 10% Ophth Soln 5 ML Bot EYERT SCH ×3 (13:10→13:33)
[2017-01-08] MEDS ORDERED: Balanced Salt Solution Plus Ophth Irrig 500 ML Bottle IOCULAR ONE (15:04)
[2017-01-08] MEDS ORDERED: Water For Irrigation,Sterile 1,500 ML Container IRR ONE (15:04)
[2017-01-08] MEDS ORDERED: Balanced Salt Solution Ophth Irrig 15 ML Bottle EYERT ONE (15:04)
[2017-01-08] MEDS ORDERED: EPINEPHrine 1 MG/ML SDV ONE (15:05)
[2017-01-08] MEDS ORDERED: Tetracaine 0.5% 2 ML Bottle EYEBOTH ONE (15:05)
[2017-01-08] MEDS ORDERED: Dexamethasone/Neomycin/Polymyxin B Ophth Oint 3.5 GM Tube EYERT ONE (15:05)
[2017-01-08] MEDS ORDERED: Carbachol 0.01% Intraocular 1.5 ML Vial EYERT ONE (15:05)
[2017-01-08] MEDS ORDERED: Lidocaine 2% with EPINEPHrine 1:100,000 20 ML MDV INJECT ONE (15:06)
[2017-01-08] MEDS ORDERED: Lidocaine 1% 10 ML MDV INJECT ONE (15:06)
[2017-01-08] MEDS ORDERED: Hyaluronate Sodium 1% 0.85 ML Syringe IOCULAR ONE (15:08)
[2017-01-08 15:28] VITALS: BP 179/75
--- NOTE | 2017-01-09 09:51 | OR ---
DATE OF SURGERY: 01/08/2017 SURGEON: Pedrito Garces MD PREOPERATIVE DIAGNOSIS: Cataract, right eye. POSTOPERATIVE DIAGNOSIS: Cataract, right eye. OPERATION PERFORMED: Phacoemulsification with posterior chamber lens insertion, right eye. FINDINGS: The patient was taken to the operating room where appropriate anesthesia, sedation and monitoring were provided. A retrobulbar block was given on the right side. The eye was massaged and was found to be appropriately soft. The eye and eyelids were then prepped and draped in the usual sterile manner. A lid speculum was placed. A micro sharp blade was used to enter the anterior chamber inside the limbus superior-temporally. Xylocaine was irrigated into the eye at this site. Healon was irrigated into the eye through this site. Then using a 2.85 mm corneal blade an entry was made into the anterior chamber just inside the limbus temporally. Healon was again irrigated into the eye. Then using a cystitome, the anterior capsulorrhexis was created. The lens nucleus was hydrodissected using a 27 gauge cannula and balanced salt solution. The phacoemulsification unit was introduced through the temporal site and the Berto spatula through the superior temporal site. In so doing, the lens nucleus was phacoemulsified. The cortical fragments of the lens were removed using the irrigation aspiration unit. The posterior capsule was polished. Healon was irrigated into the eye. The posterior chamber lens was inserted and rotated into position inside the capsular bag. The Healon was irrigated out of the eye. Miostat was irrigated into the eye and the pupil rounded nicely. A single interrupted 10-0 Nylon suture was placed through the temporal corneal incision site. Balanced salt solution was irrigated into the eye. The wound was tested and found to be tight. Maxitrol ointment was placed into the patient's right eye. The eyelids were closed and an eye patch and marroquin shield were placed. The patient left the operating room in good condition. /[id number]/MODL
== END 2017-01-08 16:03 | disposition home or self-care (01) ==
LOC: KA.SDS 11:48
PROVIDERS: ATTEND Ophthalmology
DX: H26.9 Unspecified cataract (principal); I10 Essential (primary) hypertension; E03.9 Hypothyroidism, unspecified; E78.00 Pure hypercholesterolemia, unspecified; E55.9 Vitamin D deficiency, unspecified; K21.0 Gastro-esophageal reflux disease with esophagitis; Z79.82 Long term (current) use of aspirin; Z79.899 Other long term (current) drug therapy; Z88.0 Allergy status to penicillin; Z88.2 Allergy status to sulfonamides; Z91.09 Other allergy status, other than to drugs and biological substances
CPT/HCPCS: 66984; A9270; J0171; J7120; 00142; C1780

== ENCOUNTER 2017-02-12 10:28 | Day surgery (SDC) | payer MEDICARE ==
[2017-02-12] MEDS ORDERED: Lactated Ringers 1,000 ML IV SCH (10:30)
[2017-02-12] MEDS ORDERED: Sodium Chloride 0.9% 5 ML Syringe FLUSH PRN (10:30)
[2017-02-12] MEDS ORDERED: Gatifloxacin 0.5% Ophth Soln 2.5 ML Bot EYELF SCH (10:30)
[2017-02-12] MEDS: Phenylephrine 10% Ophth Soln 5 ML Bot EYELF SCH ×3 (10:50→11:14)
[2017-02-12] MEDS: Cyclopentolate 1% Opth Soln 2 ML Bottle EYELF SCH ×3 (10:55→11:19)
[2017-02-12] MEDS ORDERED: Water For Irrigation,Sterile 1,500 ML Container IRR ONE (12:12)
[2017-02-12] MEDS ORDERED: Balanced Salt Solution Plus Ophth Irrig 500 ML Bottle IOCULAR ONE (12:13)
[2017-02-12] MEDS ORDERED: Carbachol 0.01% Intraocular 1.5 ML Vial EYELF ONE (12:13)
[2017-02-12] MEDS ORDERED: Balanced Salt Solution Ophth Irrig 15 ML Bottle EYELF ONE (12:13)
[2017-02-12] MEDS ORDERED: Dexamethasone/Neomycin/Polymyxin B Ophth Oint 3.5 GM Tube EYELF ONE (12:13)
[2017-02-12] MEDS ORDERED: EPINEPHrine 1 MG/ML SDV ONE (12:13)
[2017-02-12] MEDS ORDERED: Hyaluronate Sodium 1% 0.85 ML Syringe IOCULAR ONE (12:14)
[2017-02-12] MEDS ORDERED: Lidocaine 2% with EPINEPHrine 1:100,000 20 ML MDV INJECT ONE (12:14)
[2017-02-12] MEDS ORDERED: Lidocaine 1% 10 ML MDV INFILT ONE (12:14)
[2017-02-12 12:50] VITALS: BP 197/68
--- NOTE | 2017-02-13 08:20 | OR ---
DATE OF SURGERY: 02/12/2017 SURGEON: Pedrito Garces MD PREOPERATIVE DIAGNOSIS: Cataract, left eye. POSTOPERATIVE DIAGNOSIS: Same. OPERATION PERFORMED: Phacoemulsification with posterior chamber lens insertion, left eye. FINDINGS: The patient was taken to the operating room where appropriate anesthesia, sedation and monitoring were provided. A retrobulbar block was given on the left side. The eye was massaged and was found to be appropriately soft. The eye and eyelids were then prepped and draped in the usual sterile manner. A lid speculum was placed. A micro sharp blade was used to enter the anterior chamber inside the limbus inferior-temporally. Xylocaine was irrigated into the eye at this site. Healon was irrigated into the eye through this site. Then using a 2.85 mm corneal blade an entry was made into the anterior chamber just inside the limbus temporally. Healon was again irrigated into the eye. Then using a cystitome, the anterior capsulorrhexis was created. The lens nucleus was hydrodissected using a 27 gauge cannula and balanced salt solution. The phacoemulsification unit was introduced through the temporal site and the Berto spatula through the inferior temporal site. In so doing, the lens nucleus was phacoemulsified. The cortical fragments of the lens were removed using the irrigation aspiration unit. The posterior capsule was polished. Healon was irrigated into the eye. The posterior chamber lens was inserted and rotated into position inside the capsular bag. The Healon was irrigated out of the eye. Miostat was irrigated into the eye and the pupil rounded nicely. A single interrupted 10-0 Nylon suture was placed through the temporal corneal incision site. Balanced salt solution was irrigated into the eye. The wound was tested and found to be tight. Maxitrol ointment was placed into the patient's left eye. The eyelids were closed and an eye patch and marroquin shield were placed. The patient left the operating room in good condition. /[id number]/MODL
== END 2017-02-12 13:15 | disposition home or self-care (01) ==
LOC: KA.SDS 10:28
PROVIDERS: ATTEND Ophthalmology
DX: H26.9 Unspecified cataract (principal); E03.9 Hypothyroidism, unspecified; E78.00 Pure hypercholesterolemia, unspecified; E55.9 Vitamin D deficiency, unspecified; K21.9 Gastro-esophageal reflux disease without esophagitis; I10 Essential (primary) hypertension; Z79.82 Long term (current) use of aspirin; Z79.52 Long term (current) use of systemic steroids; Z79.899 Other long term (current) drug therapy; Z88.0 Allergy status to penicillin; Z88.2 Allergy status to sulfonamides; Z91.048 Other nonmedicinal substance allergy status; Z86.711 Personal history of pulmonary embolism
CPT/HCPCS: 00142; 66984; A9270; C1780; J0171; J7120

== ENCOUNTER 2017-05-22 11:41 | Observation (INO) | payer MEDICARE ==
--- NOTE | 2017-05-22 11:50 | EDM.PDOC ---
ED HPI GENERAL MEDICAL PROBLEM - General Chief Complaint: General Stated Complaint: High Blood Pressure Time Seen by Provider: 05/22/17 11:47 Source of Information: Reports: Patient History Limitations: Reports: No Limitations - History of Present Illness INITIAL COMMENTS - FREE TEXT/NARRATIVE: 89 YO WF presents to ER with complaints of uncontrolled hypertension. Pt states she was seen in [facility] recently and had her blood pressure medications changed but is concerned the medication isn't working. Pt complaining of not feeling well with minimal chest pain. Pt denies shortness of breath, nausea/ vomiting, diaphoresis but states she has felt a little lightheaded without headache. Onset: Unknown/Unsure Duration: Chronic Location: Reports: Chest Quality: Reports: Ache Severity: Mild Improves with: Reports: None Worsens with: Reports: None - Related Data Allergies Allergy/AdvReac Type Severity Reaction Status Date / Time adhesive tape Allergy Cannot Verified 05/22/17 12:00 Remember Penicillins Allergy Rash Verified 05/22/17 12:00 Sulfa (Sulfonamide Allergy Rash Verified 05/22/17 12:00 Antibiotics) Home Meds: Home Meds Aspirin [Halfprin] 81 mg PO DAILY 08/24/13 [History] Latanoprost [Xalatan 0.005% Ophth Soln] 1 drop EYEBOTH BEDTIME 08/24/13 [History ] Multivitamin [Multi-Vitamin Daily] 1 each PO DAILY 08/24/13 [History] Lansoprazole [Prevacid] 30 mg PO DAILY 12/24/15 [History] Levobunolol [Betagan 0.5% Ophth Soln] 1 drop EYEBOTH BID 02/13/16 [History] Docusate Sodium [Colace] 100 mg PO DAILY PRN 05/30/16 [History] Metoprolol Succinate [Toprol XL] 50 mg PO DAILY 05/30/16 [History] Carboxymethyl/Glycerin/Poly80 [Refresh Optive Advanced Drops] 1 - 2 drop EYEBOTH Q4H PRN 05/31/16 [History] Levothyroxine Sodium [Synthroid] 88 mcg PO MOTUWETHFR 08/04/16 [History] Losartan [Cozaar] 100 mg PO BEDTIME 08/12/16 [History] Cholecalciferol (Vitamin D3) [Vitamin D3] 2,000 unit PO DAILY 05/22/17 [History] Cholecalciferol (Vitamin D3) [Vitamin D3] 50,000 unit PO WEEKLY 05/22/17 [ History] Hydrocortisone [Procto-Med Hc] 1 applic RECTAL TID PRN 05/22/17 [History] Levothyroxine [Synthroid] 100 mcg PO ASDIRECTED 05/22/17 [History] Polyethylene Glycol 3350 [MiraLAX] 1 pkt PO DAILY 05/22/17 [History] Past Medical History HEENT History: Reports: Cataract, Glaucoma Cardiovascular History: Reports: Blood Clots/VTE/DVT, High Cholesterol, Hypertension Gastrointestinal History: Reports: Chronic Constipation, Chronic Diarrhea, Diverticulosis, GERD Genitourinary History: Reports: UTI, Recurrent [employer] History: Reports: Musculoskeletal History: Reports: Arthritis Endocrine/Metabolic History: Reports: Hypothyroidism Dermatologic History: Reports: Other (See Below) Other Dermatologic History: chronic rash from medication she takes - Infectious Disease History Infectious Disease History: Reports: Chicken Pox, Measles, Mumps, Pertussis ( Whooping Cough) - Past Surgical History Head Surgeries/Procedures: Reports: None HEENT Surgical History: Reports: Adenoidectomy, Cataract Surgery, Tonsillectomy Cardiovascular Surgical History: Reports: None GI Surgical History: Reports: Appendectomy, Colonoscopy, EGD, Hernia, Abdominal Female Surgical History: Reports: Section, Hysterectomy Other Female Surgeries/Procedures: lumpectomy Endocrine Surgical History: Reports: None Neurological Surgical History: Reports: None Musculoskeletal Surgical History: Reports: Knee Replacement Dermatological Surgical History: Reports: None Social & Family History - Family History HEENT: Reports: None Cardiac: Reports: High Cholesterol GI: Reports: None : Reports: None OBGYN: Reports: None Musculoskeletal: Reports: None Neurological: Reports: None, CVA Psychiatric: Reports: None Endocrine/Metabolic: Reports: None Hematologic: Reports: None Dermatologic: Reports: None Oncologic: Reports: Brain, Breast, Lung - Tobacco Use Smoking Status *Q: Former Smoker Years of Tobacco use: 15 Packs/Tins Daily: 1 Used Tobacco, but Quit: Yes Month Tobacco Last Used: 45 yrs ago Second Hand Smoke Exposure: No - Caffeine Use Caffeine Use: Reports: Coffee - Recreational Drug Use Recreational Drug Use: No ED ROS GENERAL - Review of Systems Review Of Systems: See Below Constitutional: Reports: No Symptoms HEENT: Reports: No Symptoms Respiratory: Reports: No Symptoms Cardiovascular: Reports: Chest Pain, Lightheadedness Endocrine: Reports: No Symptoms GI/Abdominal: Reports: No Symptoms : Reports: No Symptoms Musculoskeletal: Reports: No Symptoms Skin: Reports: No Symptoms Neurological: Reports: No Symptoms Psychiatric: Reports: No Symptoms Hematologic/Lymphatic: Reports: No Symptoms Immunologic: Reports: No Symptoms ED EXAM, GENERAL - Physical Exam Exam: See Below Exam Limited By: No Limitations General Appearance: Alert, WD/WN, No Apparent Distress Eye Exam: Bilateral Eye: EOMI, PERRL Head: Atraumatic, Normocephalic Neck: Normal Inspection, Supple, Non-Tender, Full Range of Motion Respiratory/Chest: No Respiratory Distress, Lungs Clear, Normal Breath Sounds, No Accessory Muscle Use, Chest Non-Tender Cardiovascular: Normal Peripheral Pulses, Regular Rate, Rhythm, No Edema, No Gallop, No JVD, No Murmur, No Rub GI/Abdominal: Normal Bowel Sounds, Soft, Non-Tender, No Organomegaly, No Distention, No Abnormal Bruit, No Mass Back Exam: Normal Inspection, Full Range of Motion, NT Extremities: Normal Inspection, Normal Range of Motion, Non-Tender, Normal Capillary Refill, No Pedal Edema Neurological: Alert, Oriented, CN II-XII Intact, Normal Cognition, Normal Gait, Normal Reflexes, No Motor/Sensory Deficits Psychiatric: Normal Affect, Normal Mood Skin Exam: Warm, Dry, Intact, Normal Color, No Rash Lymphatic: No Adenopathy EKG INTERPRETATION EKG Date: 05/22/17 Time: 12:29 Rhythm: NSR Rate (Beats/Min): 57 [place]: LAD-Left [place] Deviation P-Wave: Present QRS: Normal ST-T: Normal QT: Normal Comparison: No Change Course - Vital Signs Last Recorded V/S: Last Vital Signs Temp 36.6 C 05/22/17 11:49 Pulse 58 L 05/22/17 11:49 Resp 16 05/22/17 11:49 BP 225/80 H 05/22/17 11:49 Pulse Ox 93 L 05/22/17 11:49 - Orders/Labs/Meds Orders: Active Orders 24 hr Category Date Time Status Patient Status Manage Transfer [TRANSFER] Routine ADT 05/22/17 13:27 Ordered Patient Status [ADT] Routine ADT 05/22/17 13:28 Ordered Bedrest Bathroom Privileges [RC] ASDIRECTED Care 05/22/17 13:28 Active Cardiac Monitoring [RC] CONTINUOUS Care 05/22/17 13:29 Active EKG Documentation Completion [RC] ASDIRECTED Care 05/22/17 12:07 Active Oxygen Therapy [RC] PRN Care 05/22/17 13:28 Active Peripheral IV Care [RC] . DIRECTED Care 05/22/17 12:07 Active Peripheral IV Care [RC] . DIRECTED Care 05/22/17 13:31 Active VTE/DVT Education [RC] PER UNIT ROUTINE Care 05/22/17 13:28 Active Vital Signs [RC] Q4H Care 05/22/17 13:28 Active 2 Gram Sodium Diet [DIET] Diet 05/22/17 Lunch Active Chest 2V [CR] Stat Exams 05/22/17 12:06 Taken BASIC METABOLIC PANEL,BMP [CHEM] AM Lab 05/23/17 05:11 Ordered CBC WITH AUTO DIFF [HEME] AM Lab 05/23/17 05:11 Ordered TROPONIN I [CHEM] AM Lab 05/23/17 05:11 Ordered TROPONIN I [CHEM] Routine Lab 05/22/17 18:00 Ordered TROPONIN I [CHEM] Timed Lab 05/23/17 00:01 Ordered Aspirin [Ecotrin] Med 05/23/17 09:00 Active 325 mg PO DAILY Nitroglycerin [Nitro-Bid 2%] Med 05/22/17 13:32 Active 1 gm TOP Q6H PRN Sodium Chloride 0.9% [Syrex Flush] Med 05/22/17 12:06 Active 5 ml FLUSH Q8HR PRN Sodium Chloride 0.9% [Syrex Flush] Med 05/22/17 13:28 Active 5 ml FLUSH Q8HR PRN Peripheral IV Insertion Adult [OM.PC] Routine Oth 05/22/17 12:06 Ordered Peripheral IV Insertion Adult [OM.PC] Routine Oth 05/22/17 13:28 Ordered Resuscitation Status Routine Resus Stat 05/22/17 13:28 Ordered Medication Orders Aspirin (Ecotrin) 325 mg PO DAILY ALEX Nitroglycerin (Nitro-Bid 2%) 1 gm TOP Q6H PRN PRN Reason: Chest Pain Sodium Chloride (Syrex Flush) 5 ml FLUSH Q8HR PRN PRN Reason: Keep Vein Open Sodium Chloride (Syrex Flush) 5 ml FLUSH Q8HR PRN PRN Reason: Keep Vein Open Labs: Laboratory Tests 05/22/17 05/22/17 05/22/17 Range/Units 12:20 12:20 12:20 WBC 7.7 (5.0-10.0) 10^3/uL RBC 4.21 (3.80-5.50) 10^6/uL Hgb 12.2 (12.0-16.0) g/dL Hct 36.9 L (37.0-47.0) % MCV 87.6 (82.0-92.0) fL MCH 29.0 (27.0-31.0) pg MCHC 33.1 (32.0-36.0) g/dL RDW 13.5 (11.5-14.5) % Plt Count 298 (150-300) 10^3/uL MPV 7.6 (7.4-10.4) fL Neut % (Auto) 74.5 H (50.0-70.0) % Lymph % (Auto) 16.3 L (20.0-40.0) % [place] % (Auto) 7.4 (2.0-8.0) % Eos % (Auto) 1.6 (1.0-3.0) % Baso % (Auto) 0.2 (0.0-1.0) % Neut # (Auto) 5.7 (2.5-7.0) 10^3/uL Lymph # (Auto) 1.3 (1.0-4.0) 10^3/uL [place] # (Auto) 0.6 (0.1-0.8) 10^3/uL Eos # (Auto) 0.1 (0.1-0.3) 10^3/uL Baso # (Auto) 0.0 (0.0-0.1) 10^3/uL PT 9.3 (8.9-11.4) SEC INR 0.9 (0.9-1.1) APTT 22.5 (20.8-31.2) SEC Sodium 143 (136-145) mmol/L Potassium 4.5 (3.3-5.3) mmol/L Chloride 105 (98-115) mmol/L Carbon Dioxide 28.0 (21.0-32.0) mmol/L BUN 16 (6-25) mg/dL Creatinine 0.79 (0.51-1.17) mg/dL Est Cr Clr Drug Dosing 38.18 mL/min Estimated GFR (MDRD) > 60 mL/min Glucose 112 H (70-110) mg/dL Calcium 8.5 L (8.7-10.3) mg/dL Total Bilirubin 0.4 (0.2-1.0) mg/dL AST 17 (15-37) U/L ALT 23 (12-78) U/L Alkaline Phosphatase 79 (46-116) IU/L Creatine Kinase 39 (26-276) U/L CK-MB (CK-2) < 0.50 (0.00-4.30) ng/mL Troponin I < 0.04 (0.00-0.070) ng/mL Total Protein 7.2 (6.4-8.2) g/dL Albumin 3.69 (3.00-4.80) g/dL Meds: Medications Generic Name Dose Route Start Last Admin Trade Name Freq PRN Reason Stop Dose Admin Aspirin 325 mg 05/23/17 09:00 Ecotrin PO DAILY ALEX Nitroglycerin 1 gm 05/22/17 13:32 Nitro-Bid 2% TOP Q6H PRN Chest Pain Sodium Chloride 5 ml 05/22/17 12:06 Syrex Flush FLUSH Q8HR PRN Keep Vein Open Sodium Chloride 5 ml 05/22/17 13:28 Syrex Flush FLUSH Q8HR PRN Keep Vein Open Discontinued Medications Generic Name Dose Route Start Last Admin Trade Name Freq PRN Reason Stop Dose Admin Aspirin 324 mg 05/22/17 12:56 05/22/17 13:10 Aspirin PO 05/22/17 12:57 324 mg ONETIME ONE Administration Nitroglycerin 1 gm 05/22/17 12:56 05/22/17 13:10 Nitro-Bid 2% TOP 05/22/17 12:57 1 gm ONETIME ONE Administration - Radiology Interpretation Free Text/Narrative:: CXR- NAD Departure - Departure Time of Disposition: 13:15 Disposition: Refer to Observation Condition: Fair Clinical Impression: Chest pain Qualifiers: Chest pain type: unspecified Qualified Code(s): R07.9 - Chest pain, unspecified Hypertension Qualifiers: Hypertension type: essential hypertension Qualified Code(s): I10 - Essential ( primary) hypertension - Discharge Information Referrals: Erlandson,Ann E, CLOTHING MAN [Primary Care Provider] - Forms: ED Department Discharge - My Orders Last 24 Hours: My Active Orders 05/22/17 12:06 Chest 2V [CR] Stat Sodium Chloride 0.9% [Syrex Flush] 5 ml FLUSH Q8HR PRN Peripheral IV Insertion Adult [OM.PC] Routine 05/22/17 12:07 EKG Documentation Completion [RC] ASDIRECTED Peripheral IV Care [RC] . DIRECTED 05/22/17 13:27 Patient Status Manage Transfer [TRANSFER] Routine 05/22/17 13:28 Patient Status [ADT] Routine Bedrest Bathroom Privileges [RC] ASDIRECTED Oxygen Therapy [RC] PRN VTE/DVT Education [RC] PER UNIT ROUTINE Vital Signs [RC] Q4H Sodium Chloride 0.9% [Syrex Flush] 5 ml FLUSH Q8HR PRN Peripheral IV Insertion Adult [OM.PC] Routine Resuscitation Status Routine 05/22/17 13:29 Cardiac Monitoring [RC] CONTINUOUS 05/22/17 13:31 Peripheral IV Care [RC] . DIRECTED 05/22/17 13:32 Nitroglycerin [Nitro-Bid 2%] 1 gm TOP Q6H PRN 05/22/17 18:00 TROPONIN I [CHEM] Routine 05/22/17 Lunch 2 Gram Sodium Diet [DIET] 05/23/17 00:01 TROPONIN I [CHEM] Timed 05/23/17 05:11 BASIC METABOLIC PANEL,BMP [CHEM] AM CBC WITH AUTO DIFF [HEME] AM TROPONIN I [CHEM] AM 05/23/17 09:00 Aspirin [Ecotrin] 325 mg PO DAILY - Assessment/Plan Last 24 Hours: My Active Orders 05/22/17 12:06 Chest 2V [CR] Stat Sodium Chloride 0.9% [Syrex Flush] 5 ml FLUSH Q8HR PRN Peripheral IV Insertion Adult [OM.PC] Routine 05/22/17 12:07 EKG Documentation Completion [RC] ASDIRECTED Peripheral IV Care [RC] . DIRECTED 05/22/17 13:27 Patient Status Manage Transfer [TRANSFER] Routine 05/22/17 13:28 Patient Status [ADT] Routine Bedrest Bathroom Privileges [RC] ASDIRECTED Oxygen Therapy [RC] PRN VTE/DVT Education [RC] PER UNIT ROUTINE Vital Signs [RC] Q4H Sodium Chloride 0.9% [Syrex Flush] 5 ml FLUSH Q8HR PRN Peripheral IV Insertion Adult [OM.PC] Routine Resuscitation Status Routine 05/22/17 13:29 Cardiac Monitoring [RC] CONTINUOUS 05/22/17 13:31 Peripheral IV Care [RC] . DIRECTED 05/22/17 13:32 Nitroglycerin [Nitro-Bid 2%] 1 gm TOP Q6H PRN 05/22/17 18:00 TROPONIN I [CHEM] Routine 05/22/17 Lunch 2 Gram Sodium Diet [DIET] 05/23/17 00:01 TROPONIN I [CHEM] Timed 05/23/17 05:11 BASIC METABOLIC PANEL,BMP [CHEM] AM CBC WITH AUTO DIFF [HEME] AM TROPONIN I [CHEM] AM 05/23/17 09:00 Aspirin [Ecotrin] 325 mg PO DAILY Assessment:: 1. uncontrolled htn 2. chest pain Plan: 1. admit for observation 2. nitro/ASA 3. oxygen/supportive care
[2017-05-22] MEDS ORDERED: Sodium Chloride 0.9% 5 ML Syringe FLUSH PRN (12:06)
[2017-05-22 12:54] LABS: CHLORIDE,CL 105 mmol/L (98-115); SODIUM,NA 143 mmol/L (136-145)
[2017-05-22] MEDS ORDERED: Nitroglycerin 2% Oint 1 GM UD Packet TOP ONE (12:56)
[2017-05-22] MEDS ORDERED: Aspirin 81 MG Tab.Chew PO ONE (12:56)
[2017-05-22] MEDS ORDERED: Nitroglycerin 2% Oint 1 GM UD Packet TOP PRN (13:32)
[2017-05-22] MEDS ORDERED: EPINEPHrine 1:10,000 1 MG/10 ML Syringe IVPUSH PRN (14:54)
[2017-05-22] MEDS ORDERED: Lidocaine 2% 100 MG/5 ML Syringe IVPUSH PRN (14:54)
[2017-05-22] MEDS ORDERED: Nitroglycerin 0.4 MG Tab.SL SL PRN (14:54)
[2017-05-22] MEDS ORDERED: Atropine 0.1 MG/ML 10 ML Syringe IVPUSH PRN (14:54)
[2017-05-22] MEDS ORDERED: Hydrocortisone 2.5% Crm 30 GM Tube TOP PRN (15:45)
[2017-05-22] MEDS ORDERED: Docusate Sodium 100 MG Cap PO PRN (15:45)
[2017-05-22] MEDS ORDERED: SYNTHROID 88 MCG TABLET PO SCH (15:45)
[2017-05-22] MEDS ORDERED: Carboxymethylcellulose Sodium 0.5% Ophth Soln 15 ML Bottle EYEBOTH PRN (15:45)
[2017-05-22] MEDS ORDERED: Metoprolol Tartrate 5 MG/5 ML SDV IVPUSH ONE (15:48)
--- NOTE | 2017-05-22 18:25 | PCM.HP ---
H&P History of Present Illness - General Date of Service: 05/22/17 Source of Information: Patient, Old Records, Provider, RN History Limitations: Reports: No Limitations - History of Present Illness Initial Comments - Free Text/Narative: This is an 89 year old female who presented to the ED with concerns of elevated blood pressure. The patient noted her blood pressure to be 215 systolic at home after taking her toprol XL 25 mg tablet. She decided she needed to be evaluated at the ED. The patient complained of slight chest pain and lightheadedness. She had further workup with EKG and labs. 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 Troponin <0.04. The patient was seen in the [facility] on 05/17/17 by myself for a routine checkup. BP was noted to be slightly elevated at 180s, however patient had taken her toprol XL shortly before coming in. She took her BP when she got home that day and it was high. She was instructed to take losartan 100 mg daily at bedtime and come to clinic for a nurse BP check on 05/20/17. She did as such and had to be seen as her BP was 200 systolic. This did come down to 160/92 with losartan 100 mg given. The patient has a long-standing history of accelerated hypertension. She has been seen by nephrology in the past, but is no longer under their care per patient. She has been on hydralazine and clonidine in the past. The patient lives at home alone. She does have her daughter and son-in-law living next door, however they have been gone for the past month. - Related Data Allergies/Adverse Reactions: Allergies Allergy/AdvReac Type Severity Reaction Status Date / Time adhesive tape Allergy Cannot Verified 05/22/17 12:00 Remember Penicillins Allergy Rash Verified 05/22/17 12:00 Sulfa (Sulfonamide Allergy Rash Verified 05/22/17 12:00 Antibiotics) Home Medications: Home Meds RX: Aspirin [Halfprin] 81 mg PO DAILY 08/24/13 [History] RX: Latanoprost [Xalatan 0.005% Ophth Soln] 1 drop EYEBOTH BEDTIME 08/24/13 [ History] RX: Multivitamin [Multi-Vitamin Daily] 1 each PO DAILY 08/24/13 [History] RX: Lansoprazole [Prevacid] 30 mg PO DAILY 12/24/15 [History] RX: Levobunolol [Betagan 0.5% Ophth Soln] 1 drop EYEBOTH BID 02/13/16 [History] RX: Docusate Sodium [Colace] 100 mg PO DAILY PRN 05/30/16 [History] RX: Metoprolol Succinate [Toprol XL] 50 mg PO DAILY 05/30/16 [History] RX: Carboxymethyl/Glycerin/Poly80 [Refresh Optive Advanced Drops] 1 - 2 drop EYEBOTH Q4H PRN 05/31/16 [History] Levothyroxine Sodium [Synthroid] 88 mcg PO MOTUWETHFR 08/04/16 [History] RX: Losartan [Cozaar] 100 mg PO BEDTIME 08/12/16 [History] Cholecalciferol (Vitamin D3) [Vitamin D3] 2,000 unit PO DAILY 05/22/17 [History] Cholecalciferol (Vitamin D3) [Vitamin D3] 50,000 unit PO WEEKLY 05/22/17 [ History] Hydrocortisone [Procto-Med Hc] 1 applic RECTAL TID PRN 05/22/17 [History] Polyethylene Glycol 3350 [MiraLAX] 1 pkt PO DAILY 05/22/17 [History] RX: Levothyroxine [Synthroid] 100 mcg PO ASDIRECTED 05/22/17 [History] Past Medical History HEENT History: Reports: Cataract, Glaucoma Cardiovascular History: Reports: Blood Clots/VTE/DVT, High Cholesterol, Hypertension Gastrointestinal History: Reports: Chronic Constipation, Diverticulosis, GERD, Hemorrhoids Genitourinary History: Reports: UTI, Recurrent [employer] History: Reports: Musculoskeletal History: Reports: Arthritis, Osteoarthritis Psychiatric History: Reports: Anxiety Endocrine/Metabolic History: Reports: Hypothyroidism Dermatologic History: Reports: Other (See Below) Other Dermatologic History: chronic rash from medication she takes - Infectious Disease History Infectious Disease History: Reports: Chicken Pox, Measles, Mumps, Pertussis ( Whooping Cough) - Past Surgical History Head Surgeries/Procedures: Reports: None HEENT Surgical History: Reports: Adenoidectomy, Cataract Surgery, Tonsillectomy Cardiovascular Surgical History: Reports: None GI Surgical History: Reports: Appendectomy, Colonoscopy, EGD, Hernia, Abdominal Female Surgical History: Reports: Section, Hysterectomy Other Female Surgeries/Procedures: lumpectomy Endocrine Surgical History: Reports: None Neurological Surgical History: Reports: None Musculoskeletal Surgical History: Reports: Knee Replacement Dermatological Surgical History: Reports: None Social & Family History - Family History HEENT: Reports: None Cardiac: Reports: High Cholesterol GI: Reports: None : Reports: None OBGYN: Reports: None Musculoskeletal: Reports: None Neurological: Reports: None, CVA Psychiatric: Reports: None Endocrine/Metabolic: Reports: None Hematologic: Reports: None Dermatologic: Reports: None Oncologic: Reports: Brain, Breast, Lung - Tobacco Use Smoking Status *Q: Former Smoker Years of Tobacco use: 15 Packs/Tins Daily: 1 Used Tobacco, but Quit: Yes Month Tobacco Last Used: 45 years ago Second Hand Smoke Exposure: No - Caffeine Use Caffeine Use: Reports: Coffee - Recreational Drug Use Recreational Drug Use: No H&P Review of Systems - Review of Systems: Review Of Systems: See Below General: Denies: Fever, Chills HEENT: Reports: Glasses, Hearing Changes (chronic). Denies: Ear Pain, Headaches , Sinus Congestion, Sore Throat Pulmonary: Denies: Shortness of Breath, Cough, Sputum Cardiovascular: Reports: Blood Pressure Problem. Denies: Chest Pain, Edema, Lightheadedness Gastrointestinal: Denies: Abdominal Pain Neurological: Denies: Dizziness, Headache Exam - Exam Exam: See Below - Vital Signs Vital Signs: Last Vital Signs Temp 98.5 F 05/22/17 14:17 Pulse 55 L 05/22/17 17:00 Resp 18 05/22/17 14:17 BP 156/61 H 05/22/17 17:00 Pulse Ox 97 05/22/17 14:33 Weight: 142 lb 12.8 oz - Exam Quality Assessment: DVT Prophylaxis (score of 6, start lovenox ). No: Supplemental Oxygen General: Alert, Oriented (x3), Cooperative, Other (No distress) HEENT: Conjunctiva Clear, Hearing Intact, Mucosa Moist & Omega, Posterior Pharynx Clear, TMs Clear, Glasses Neck: Supple, Trachea Midline. No: Lymphadenopathy Lungs: Clear to Auscultation, Normal Respiratory Effort Cardiovascular: Regular Rate, Regular Rhythm, Normal S1, Normal S2 GI/Abdominal Exam: Normal Bowel Sounds, Soft, Non-Tender Extremities: No Pedal Edema Skin: Warm, Dry Neurological: Normal Speech Neuro Extensive - Mental Status: Alert, Oriented x3, Normal Mood/Affect, Memory Intact (Does get confused regarding medications easily) Psychiatric: Alert, Normal Affect, Normal Mood. No: Anxious - Patient Data Result Diagrams: 05/22/17 12:20 05/22/17 12:20 EKG INTERPRETATION EKG Date: 05/22/17 Time: 12:29 Rhythm: Other (sinus bradycardia at 57 bpm) Rate (Beats/Min): 57 [place]: Normal P-Wave: Present QRS: Normal ST-T: Other (anteroseptal t wave changes) QT: Normal Comparison: Change From Previous EKG (sinus bradycardia new) *Q Meaningful Use (ADM) - VTE *Q VTE Criteria *Q: - Stroke *Q Stroke Criteria *Q: - AMI *Q AMI Criteria *Q: Problem List Initiated/Reviewed/Updated: Yes Orders Last 24hrs: Active Orders 24 hr Category Date Time Status Communication Order [RC] PER UNIT ROUTINE Care 05/22/17 18:00 Active Atropine [Atropine 0.1 MG/ML] Med 05/22/17 14:54 Active 0 mg IVPUSH ASDIRECTED PRN Carboxymethylcellulose Sodium [Refresh Tears 0.5%] Med 05/22/17 15:45 Active 1 - 2 ml EYEBOTH Q4H PRN Docusate Sodium [Colace] Med 05/22/17 15:45 Active 100 mg PO DAILY PRN EPINEPHrine [EPINEPHrine 1:10,000] Med 05/22/17 14:54 Active 1 mg IVPUSH ASDIRECTED PRN Ergocalciferol (Vitamin D2) [Vitamin D2] Med 05/24/17 09:00 Active 50,000 units PO Fr FA/Lycopene/Lut/MV,Ca,Iron,Min [Centrum] Med 05/23/17 09:00 Active 1 tab PO DAILY Levothyroxine [Synthroid] Med 05/25/17 15:58 Pending 100 mcg PO SuSa Lidocaine 2% [Xylocaine 2%] Med 05/22/17 14:54 Active 0 mg IVPUSH ASDIRECTED PRN Nitroglycerin [Nitrostat] Med 05/22/17 14:54 Active 0.4 mg SL ASDIRECTED PRN Patient's Own Medication [Ptom] Med 05/22/17 21:00 Active 0 each EYEBOTH BEDTIME Patient's Own Medication [Ptom] Med 05/22/17 21:00 Active 0 each EYEBOTH BID Patient's Own Medication [Ptom] Med 05/22/17 15:45 Active 0 each TOP TID PRN Patient's Own Medication [Ptom] Med 05/23/17 09:00 Active 1 each PO DAILY Patient's Own Medication [Ptom] Med 05/23/17 07:00 Active 1 each PO MOTUWETHFR Patient's Own Medication [Ptom] Med 05/22/17 21:00 Active 2 each PO BEDTIME Patient's Own Medication [Ptom] Med 05/23/17 09:00 Active 2 each PO DAILY Polyethylene Glycol 3350 [MiraLAX] Med 05/23/17 09:00 Active 17 gm PO DAILY Medication Orders Artificial Tears (Refresh Tears 0.5%) 1 - 2 ml EYEBOTH Q4H PRN PRN Reason: Dry Eyes Aspirin (Ecotrin) 325 mg PO DAILY [facility] Atropine Sulfate (Atropine 0.1 Mg/Ml) 0 mg IVPUSH ASDIRECTED PRN PRN Reason: Heart Docusate Sodium (Colace) 100 mg PO DAILY PRN PRN Reason: Constipation Epinephrine HCl (Epinephrine 1:10,000) 1 mg IVPUSH ASDIRECTED PRN PRN Reason: Heart Ergocalciferol (Vitamin D2) 50,000 units PO Fr [facility]LEX Levothyroxine Sodium (Synthroid) 100 mcg PO SuSa [facility] Lidocaine HCl (Xylocaine 2%) 0 mg IVPUSH ASDIRECTED PRN PRN Reason: Heart Multivitamins/Minerals (Centrum) 1 tab PO DAILY [facility] Nitroglycerin (Nitro-Bid 2%) 1 gm TOP Q6H PRN PRN Reason: Chest Pain Nitroglycerin (Nitrostat) 0.4 mg SL ASDIRECTED PRN PRN Reason: Heart Hydrocortisone 2.5% (Crm 30 Gm Tube) 0 each TOP TID PRN PRN Reason: Constipation Lansoprazole [ (Prevacid] 30 Mg) 1 each PO DAILY [facility] Latanoprost 0.005% Ophth Soln 2.5 Ml Bottle 0 each EYEBOTH BEDTIME [facility] Levobunolol 0.5% Ophth Soln 5 Ml Bottle 0 each EYEBOTH BID ALEX Losartan 50 Mg Tab 2 each PO BEDTIME [facility] Synthroid 88 Mcg (Tablet*Pt Own Med*) 1 each PO MOTUWETHFR ALEX Metoprolol Succinate (25 Mg Tab.Er) 2 each PO DAILY [facility] Polyethylene Glycol (Miralax) 17 gm PO DAILY [facility] Sodium Chloride (Syrex Flush) 5 ml FLUSH Q8HR PRN PRN Reason: Keep Vein Open Assessment/Plan Comment:: This is an 89 year old female who presented to the ED with concerns of elevated blood pressure. The patient noted her blood pressure to be 215 systolic at home after taking her toprol XL 25 mg tablet. She decided she needed to be evaluated at the ED. The patient complained of slight chest pain and lightheadedness. She had further workup with EKG and labs. 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 Troponin <0.04. The patient was seen in the [facility] on 05/17/17 by myself for a routine checkup. BP was noted to be slightly elevated at 180s, however patient had taken her toprol XL shortly before coming in. She took her BP when she got home that day and it was high. She was instructed to take losartan 100 mg daily at bedtime and come to clinic for a nurse BP check on 05/20/17. She did as such and had to be seen as her BP was 200 systolic. This did come down to 160/92 with losartan 100 mg given. The patient has a long-standing history of accelerated hypertension. She has been seen by nephrology in the past, but is no longer under their care per patient. She has been on hydralazine and clonidine in the past. The patient lives at home alone. She does have her daughter and son-in-law living next door, however they have been gone for the past month. Pertinent ED workup: EKG revealed sinus bradycardia, left atrial enlargement, anteroseptal infarct Troponin <0.04 Nitropaste given x 1 for chest pain PRIMARY ASSESSMENT/PLAN: Uncontrolled hypertension. Lopressor 5 mg IV x 1 given with improvement in systolic BP to 160. Pulse running upper 50s to 60s. Continue with toprol XL 50 mg in the AM and losartan 100 mg at bedtime. May need to add third agent such as CCB. CMP unremarkable. CBC unremarkable. Rule out [place]. Trend troponins. Continue with telemetry. On full strength aspirin (normally baby aspirin), BB, and ARB. Situational anxiety. Upon review of [facility] chart, patient appears to present with fluctuations in BP when daughter is not home. Patient may benefit from home health nursing services to include medication set up and BP monitoring. Will place social service consult. Patient has declined this in the past, but would be very beneficial. SECONDARY ASSESSMENT/PLAN: Hypothyroidism. Recent TSH 5.78. Adjustment made for synthroid 88 mcg M- and 100 mcg Saturday and Saturday. Hypercholesterolemia, history. Patient declined continuing statin at her recent checkup. Continue aspirin. Vitamin D deficiency. Recent vitamin D levels 19. She will start taking vitamin D 50,000 units weekly for 8 weeks, then start 2000 units daily. GERD. Recent decrease of prevacid to once a day. Osteoarthritis. Glaucoma. Continue eye drops. DVT prophylaxis. Score of 6. Lovenox 40 mg subQ daily. Overall treatment plan: Continue to monitor blood pressure and pulse. Nursing will notify provider if BP 200 or greater. Continue to trend troponins. Social service consult placed to help with setting up home health on discharge.
[2017-05-22] MEDS: Enoxaparin 40 MG/0.4 ML Syringe SUBCUT SCH (19:30)
[2017-05-22] MEDS: Losartan 50 MG Tab PO SCH (20:35)
[2017-05-22] MEDS: LEVOBUNOLOL 0.5% EYEBOTH SCH (20:35)
[2017-05-22] MEDS: Latanoprost 0.005% Ophth Soln 2.5 ML Bottle EYEBOTH SCH (20:35)
[2017-05-23] MEDS: SYNTHROID 88 MCG PO SCH (06:05)
[2017-05-23] MEDS: Sodium Chloride 0.9% 5 ML Syringe FLUSH PRN ×2 (06:06→20:32)
[2017-05-23 08:01] LABS: CHLORIDE,CL 104 mmol/L (98-115); SODIUM,NA 143 mmol/L (136-145)
[2017-05-23] MEDS: Multivitamins with Minerals/Iron/Folic Acid/Lycopene Tab PO SCH (08:27)
[2017-05-23] MEDS: Aspirin 325 MG Tab.EC PO SCH (08:27)
[2017-05-23] MEDS: Lansoprazole [Prevacid] 30 MG PO SCH (08:28)
[2017-05-23] MEDS: Polyethylene Glycol 3350 Powder 17 GM Packet PO SCH (08:28)
[2017-05-23] MEDS: Enoxaparin 40 MG/0.4 ML Syringe SUBCUT SCH (08:28)
[2017-05-23] MEDS: Metoprolol Succinate 25 MG Tab.ER PO SCH (08:29)
[2017-05-23] MEDS: LEVOBUNOLOL 0.5% EYEBOTH SCH ×2 (08:30→20:30)
[2017-05-23] MEDS ORDERED: Metoprolol Succinate 25 MG Tab.ER PO SCH (09:00)
--- NOTE | 2017-05-23 10:12 | PCM.PN ---
- General Info Date of Service: 05/23/17 Subjective Update: Denies chest pain, shortness of breath, no visual disturbance, no weakness in upper extremities or signs or symptoms of CVA. - Review of Systems General: Reports: No Symptoms HEENT: Reports: No Symptoms Pulmonary: Reports: No Symptoms Cardiovascular: Denies: Chest Pain, Dyspnea on Exertion, Orthopnea, PND, Edema, Lightheadedness Gastrointestinal: Reports: No Symptoms Genitourinary: Reports: No Symptoms Musculoskeletal: Reports: No Symptoms Skin: Reports: No Symptoms Neurological: Denies: Confusion, Dizziness, Headache, Numbness, Paresthesia, Difficulty Walking, Weakness, Change in Speech, Gait Disturbance Psychiatric: Reports: No Symptoms - Patient Data Vitals - Most Recent: Last Vital Signs Temp 97.8 F 05/23/17 06:05 Pulse 70 05/23/17 08:43 Resp 18 05/23/17 08:43 BP 195/84 H 05/23/17 08:43 Pulse Ox 95 05/23/17 06:05 Weight - Most Recent: 142 lb 12.8 oz I&O - Last 24 Hours: Intake & Output 05/22/17 05/23/17 05/23/17 22:59 06:59 14:59 Intake Total 100 50 Output Total 800 700 Balance -700 -650 Lab Results Last 24 Hours: Laboratory Results - last 24 hr 05/22/17 05/23/17 05/23/17 Range/Units 17:55 07:10 07:10 WBC 6.9 (5.0-10.0) 10^3/uL RBC 4.19 (3.80-5.50) 10^6/uL Hgb 12.1 (12.0-16.0) g/dL Hct 37.3 (37.0-47.0) % MCV 89.0 (82.0-92.0) fL MCH 28.9 (27.0-31.0) pg MCHC 32.5 (32.0-36.0) g/dL RDW 13.4 (11.5-14.5) % Plt Count 274 (150-300) 10^3/uL MPV 8.1 (7.4-10.4) fL Neut % (Auto) 61.9 (50.0-70.0) % Lymph % (Auto) 26.3 (20.0-40.0) % [place] % (Auto) 10.0 H (2.0-8.0) % Eos % (Auto) 1.6 (1.0-3.0) % Baso % (Auto) 0.2 (0.0-1.0) % Neut # (Auto) 4.3 (2.5-7.0) 10^3/uL Lymph # (Auto) 1.8 (1.0-4.0) 10^3/uL [place] # (Auto) 0.7 (0.1-0.8) 10^3/uL Eos # (Auto) 0.1 (0.1-0.3) 10^3/uL Baso # (Auto) 0.0 (0.0-0.1) 10^3/uL Sodium 143 (136-145) mmol/L Potassium 4.2 (3.3-5.3) mmol/L Chloride 104 (98-115) mmol/L Carbon Dioxide 28.0 (21.0-32.0) mmol/L BUN 13 (6-25) mg/dL Creatinine 0.82 (0.51-1.17) mg/dL Est Cr Clr Drug Dosing 35.94 mL/min Estimated GFR (MDRD) > 60 mL/min Glucose 99 (70-110) mg/dL Calcium 8.6 L (8.7-10.3) mg/dL Troponin I < 0.04 < 0.04 (0.00-0.070) ng/mL Med Orders - Current: Current Medications Artificial Tears (Refresh Tears 0.5%) 1 - 2 ml EYEBOTH Q4H PRN PRN Reason: Dry Eyes Aspirin (Ecotrin) 325 mg PO DAILY ON LICENSE OF [facility] Last Admin: 05/23/17 08:27 Dose: 325 mg Atropine Sulfate (Atropine 0.1 Mg/Ml) 0 mg IVPUSH ASDIRECTED PRN PRN Reason: Heart Docusate Sodium (Colace) 100 mg PO DAILY PRN PRN Reason: Constipation Enoxaparin Sodium (Lovenox) 40 mg SUBCUT DAILY ON LICENSE OF [facility] Last Admin: 05/23/17 08:28 Dose: 40 mg Epinephrine HCl (Epinephrine 1:10,000) 1 mg IVPUSH ASDIRECTED PRN PRN Reason: Heart Ergocalciferol (Vitamin D2) 50,000 units PO [facility] Levothyroxine Sodium (Synthroid) 100 mcg PO SuSa ON LICENSE OF [facility] Lidocaine HCl (Xylocaine 2%) 0 mg IVPUSH ASDIRECTED PRN PRN Reason: Heart Multivitamins/Minerals (Centrum) 1 tab PO DAILY ON LICENSE OF [facility] Last Admin: 05/23/17 08:27 Dose: 1 tab Nitroglycerin (Nitro-Bid 2%) 1 gm TOP Q6H PRN PRN Reason: Chest Pain Nitroglycerin (Nitrostat) 0.4 mg SL ASDIRECTED PRN PRN Reason: Heart Hydrocortisone 2.5% (Crm 30 Gm Tube) 0 each TOP TID PRN PRN Reason: Constipation Lansoprazole [ (Prevacid] 30 Mg) 1 each PO DAILY ON LICENSE OF [facility] Last Admin: 05/23/17 08:28 Dose: 1 each Latanoprost 0.005% Ophth Soln 2.5 Ml Bottle 0 each EYEBOTH BEDTIME ON LICENSE OF [facility] Last Admin: 05/22/17 20:35 Dose: 1 each Levobunolol 0.5% Ophth Soln 5 Ml Bottle 0 each EYEBOTH BID ON LICENSE OF [facility] Last Admin: 05/23/17 08:30 Dose: 1 each Losartan 50 Mg Tab 2 each PO BEDTIME ON LICENSE OF [facility] Last Admin: 05/22/17 20:35 Dose: 2 each Synthroid 88 Mcg (Tablet*Pt Own Med*) 1 each PO MOTUWETHFR ON LICENSE OF [facility] Last Admin: 05/23/17 06:05 Dose: 1 each Metoprolol Succinate (25 Mg Tab.Er) 2 each PO DAILY ON LICENSE OF [facility] Last Admin: 05/23/17 08:29 Dose: 2 each Polyethylene Glycol (Miralax) 17 gm PO DAILY ON LICENSE OF [facility] Last Admin: 05/23/17 08:28 Dose: Not Given Sodium Chloride (Syrex Flush) 5 ml FLUSH Q8HR PRN PRN Reason: Keep Vein Open Last Admin: 05/23/17 06:06 Dose: 5 ml Discontinued Medications Aspirin (Aspirin) 324 mg PO ONETIME ONE Stop: 05/22/17 12:57 Last Admin: 05/22/17 13:10 Dose: 324 mg Metoprolol Tartrate (Lopressor) 5 mg IVPUSH ONETIME ONE Stop: 05/22/17 15:49 Last Admin: 05/22/17 16:21 Dose: 5 mg Nitroglycerin (Nitro-Bid 2%) 1 gm TOP ONETIME ONE Stop: 05/22/17 12:57 Last Admin: 05/22/17 13:10 Dose: 1 gm Synthroid 88 Mcg (Tablet) 88 each PO MOTUWETHFR ALEX Last Admin: 05/22/17 16:29 Dose: Not Given Metoprolol Succinate (25 Mg Tab.Er) 1 each PO DAILY [facility] Sodium Chloride (Syrex Flush) 5 ml FLUSH Q8HR PRN PRN Reason: Keep Vein Open - Exam Quality Assessment: No: Supplemental Oxygen General: Alert, Oriented, Cooperative, No Acute Distress HEENT: Pupils Reactive, EOMI Neck: Supple. No: +2 Carotid Pulse wo Bruit, Carotid Bruit, JVD, Thyromegaly Lungs: Clear to Auscultation, Normal Respiratory Effort Cardiovascular: Regular Rate, Regular Rhythm GI/Abdominal Exam: Normal Bowel Sounds, Soft, Non-Tender, No Organomegaly, No Distention, No Abnormal Bruit, No Mass, Pelvis Stable (Female) Exam: Deferred Back Exam: No: CVA Tenderness (R) Extremities: No Pedal Edema Peripheral Pulses: 2+: Carotid (R), Brachial (L) Skin: Warm. No: Rash Neurological: No New Focal Deficit, Cranial Nerves Intact - Problem List Review Problem List Initiated/Reviewed/Updated: Yes - Plan Plan:: HISTORY OF PRESENT ILLNESS 89 year old female with long-standing hypertension refractory to many medications adjustments was admitted into observation through the ED due to elevated blood pressure. She stated she took her blood pressure at home and it was greater than 215 systolically sometime shortly after her taken her Toprol. He did have some slight chest pain with some dizziness. The patient had been evaluated [facility] a couple times with elevated blood pressure. I had seen her in [place] with a blood pressure over 200 administered losartan 100 mg tablets and observed her for approximately 90 minutes in her blood pressure did improve to the low end of stage II (160/92) along with no longer being dizzy or lightheaded. [facility] current medication regimen includes Toprol 50 mg a.m. and losartan 100 mg daily at bedtime. She had been on hydralazine and clonidine in the past however clonidine seems to make her dizziness quite worse. She has been seen by nephrology in the past and does not appear to have a secondary cause of her hypertension, i.e no renal artery stenosis, no urinary casts, normal cortisol levels, and 24-hour urinary aldosterone was normal at 3. Early upon admission she was given Lopressor 5 mg IV x 1 given with improvement in systolic BP to 160. Social; lives at home alone. She does have her daughter and son-in-law living next door, however they have been gone for the past month. Pertinent ED workup: EKG revealed sinus bradycardia, left atrial enlargement, anteroseptal infarct Troponin <0.04 Nitropaste given x 1 for chest pain PRIMARY ASSESSMENT/PLAN: Hypertension urgency, no longer symptomatic, improved BP however remains stage II. Continue with toprol XL 50 mg in the AM and losartan 100 mg at bedtime. Add 5 mg amlodipine today as hydralazine may increase her fall risk. Situational anxiety. Upon review of [facility] chart, patient appears to present with fluctuations in BP when daughter is not home. Refusing home health however appears to be amendable to [facility] nurse visit for medication set up. SECONDARY ASSESSMENT Hypothyroidism. Recent TSH 5.78. Will assess T4. Adjustment made for synthroid 88 mcg - and 100 mcg Saturday and Saturday, will need [facility] ER in for medication review to ensure compliance. HLD, refusing statin, Vitamin D deficiency. Recent vitamin D levels 19. She will start taking vitamin D 50,000 units weekly for 8 weeks, then start 2000 units daily. GERD. On PPI, having breakthrough symptoms, Tums when necessary Osteoarthritis. Glaucoma. Continue eye drops. DVT prophylaxis. Score of 6. Lovenox 40 mg subQ daily. Overall treatment plan: She agrees to continue observation today, Discontinue telemetry--however we'll monitor for end-organ symptoms, assess T4 levels, add amlodipine, ambulate in halls today. VS parameters. Will set up [facility] jail visits on discharge.
[2017-05-23] MEDS: amLODIPine 5 MG Tab PO SCH (10:51)
[2017-05-23] MEDS: Latanoprost 0.005% Ophth Soln 2.5 ML Bottle EYEBOTH SCH (20:29)
[2017-05-23] MEDS: Losartan 50 MG Tab PO SCH (20:30)
[2017-05-24 06:23] VITALS: BP 143/72
[2017-05-24] MEDS: SYNTHROID 88 MCG PO SCH (06:34)
[2017-05-24] MEDS: amLODIPine 5 MG Tab PO SCH (08:37)
[2017-05-24] MEDS: Lansoprazole [Prevacid] 30 MG PO SCH (08:37)
[2017-05-24] MEDS: Metoprolol Succinate 25 MG Tab.ER PO SCH (08:37)
[2017-05-24] MEDS: LEVOBUNOLOL 0.5% EYEBOTH SCH (08:37)
[2017-05-24] MEDS: Polyethylene Glycol 3350 Powder 17 GM Packet PO SCH (08:38)
[2017-05-24] MEDS: Aspirin 325 MG Tab.EC PO SCH (08:38)
[2017-05-24] MEDS: Multivitamins with Minerals/Iron/Folic Acid/Lycopene Tab PO SCH (08:38)
[2017-05-24] MEDS: Enoxaparin 40 MG/0.4 ML Syringe SUBCUT SCH (08:38)
[2017-05-24] MEDS ORDERED: Ergocalciferol (Vitamin D2) 50,000 Unit Cap PO SCH (09:00)
[2017-05-25] MEDS ORDERED: Levothyroxine 100 MCG Tab PO SCH (07:00)
--- NOTE | 2017-05-27 08:48 | DISCH ---
FINAL DIAGNOSES: Hypertension urgency, much improved; hypothyroidism with recent thyroid replacement therapy adjustment, free T4 normal; hyperlipidemia, refusing statin; vitamin D deficiency; gastroesophageal reflux disease; osteoarthritis; glaucoma. HISTORY: This 89-year-old female came to the ED with concerns of elevated blood pressure. She has been having on and off episodes of hypertension requiring multiple medication adjustments, recently removed off clonidine and hydralazine with recent increase in her ARB. I had seen her at [facility]. She has seen other providers for some adjustments. She was at home. She knows her blood pressure was elevated, so she came to the ED. She did have some slight chest pain with some lightheadedness. She came to the ED. EKG reveals sinus kaylyn with left atrial infarct, older anterior septal infarct. However, troponin was negative. They did give nitro paste for chest pain. Lopressor 5 mg x1 was given in the ED. She did have improvement in symptoms. However, she did have ongoing hypertension stage II. HOSPITAL COURSE: The patient's hospital course went fairly well. She never became hemodynamically unstable. She did have some symptoms in target organ such as dizziness and chest pain. However, this was relieved with nitro paste and added amlodipine 5 mg p.o. daily. Her last few blood pressures were 130s over 70s. Long discussion with the patient regarding home situation. Her daughter is out of the country. However, she denies this causes her any anxiety. The patient has been seen by Nephrology in the past. However, she is no longer under the care. PHYSICAL EXAMINATION: VITAL SIGNS: On discharge, blood pressure 139/69, heart rate 58, temperature 98.8, respiratory rate 18, O2 saturation 98%. Weight is stable. GENERAL: The patient alert and oriented. LUNGS: Clear to auscultation. CV: S1, S2 noted. No S3 gallop. She has no peripheral edema. LABORATORY DATA: White count 6.9; hemoglobin 12.1; hematocrit 37.3; neutrophils on admission 75%, on discharge 62%. Sodium and potassium normal. BUN 13, creatinine 0.82, glucose 99, calcium 8.6. AST, ALT, liver enzymes, troponin normal. Free T4 of 0.90, normal parameters. MEDICATION ADJUSTMENTS: Amlodipine 5 mg p.o. daily (newly added; losartan 100 mg at bedtime (no change); metoprolol 50 mg q.a.m. (no change); levothyroxine 88 mcg Saturday through Saturday, 100 mcg Saturday and Saturday (newly adjusted). The patient can continue on all her other home medications. DISPOSITION: The patient will be discharged from observation. She will be going home self-care. Ongoing discussions with her regarding county nurse, likely refusing this. I am concerned about home medications set up. However, the patient is obstinate that she can manage on her own. She will have to be monitored more carefully in the clinic. She feels ready for discharge. She is to report any dizziness or lightheaded. She is only to take her blood pressure if she is not feeling good or she has any back pain or dizziness or chest pain or any visual disturbance. Greater than 45 minutes was spent on this discharge planning and process of care coordination and medication management. /[id number]/MODL
== END 2017-05-24 10:35 | disposition home or self-care (01) ==
LOC: KA.ED 11:41 → KA.MS 13:48
PROVIDERS: ADMIT Physician Assistant Medical; ATTEND Nurse Practitioner Family
DX: I16.0 Hypertensive urgency (principal); E03.9 Hypothyroidism, unspecified; E78.5 Hyperlipidemia, unspecified; E55.9 Vitamin D deficiency, unspecified; K21.9 Gastro-esophageal reflux disease without esophagitis; M19.90 Unspecified osteoarthritis, unspecified site; H40.9 Unspecified glaucoma; K59.09 Other constipation; F41.9 Anxiety disorder, unspecified; Z79.899 Other long term (current) drug therapy; Z88.0 Allergy status to penicillin; Z91.09 Other allergy status, other than to drugs and biological substances; Z88.2 Allergy status to sulfonamides; Z79.82 Long term (current) use of aspirin; Z87.891 Personal history of nicotine dependence
CPT/HCPCS: 36415; 71046; 80048; 80053; 82550; 82553; 84439; 84484; 85025; 85610; 85730; 93005; 99284; 99285; A9270; J1650; 96372; 96374; G0378; J3490

== ENCOUNTER 2017-06-29 14:40 | Emergency (ER) | payer MEDICARE ==
[2017-06-29] MEDS ORDERED: Sodium Chloride 0.9% 5 ML Syringe FLUSH PRN (15:08)
--- NOTE | 2017-06-29 15:08 | EDM.PDOC ---
ED HPI GENERAL MEDICAL PROBLEM - General Chief Complaint: Abdominal Pain Stated Complaint: LLQ PAIN Time Seen by Provider: 06/29/17 15:03 Source of Information: Reports: Patient History Limitations: Reports: No Limitations - History of Present Illness INITIAL COMMENTS - FREE TEXT/NARRATIVE: 89 YO WF presents to ER complaining of left sided abdominal pain which began 3 hours ago. Pt reports pain comes and goes. Pt denies any fever/chills, nausea/ vomiting or diarrhea. Pt reports chronic constipation with last bowel movement this am. Pt states her bowels were hard this am but had no difficulty passing stool. Pt with history of ventral/left sided hernia repair with mesh. Pt denies any dysuria or frequency. Pt states left side of abdomen is tender to touch. Onset: Today Duration: Hour(s): (3) Location: Reports: Abdomen Quality: Reports: Ache Severity: Moderate Improves with: Reports: None Worsens with: Reports: None Associated Symptoms: Denies: Chest Pain, Cough, Diaphoresis, Fever/Chills, Loss of Appetite, Malaise, Nausea/Vomiting, Seizure, Shortness of Breath, Syncope Abdomen Pain Score (Numeric/FACES): 5 - Related Data Allergies Allergy/AdvReac Type Severity Reaction Status Date / Time adhesive tape Allergy Cannot Verified 06/29/17 16:55 Remember Penicillins Allergy Rash Verified 06/29/17 16:55 Sulfa (Sulfonamide Allergy Rash Verified 06/29/17 16:55 Antibiotics) Home Meds: Home Meds Aspirin [Halfprin] 81 mg PO DAILY 08/24/13 [History] Latanoprost [Xalatan 0.005% Ophth Soln] 1 drop EYEBOTH BEDTIME 08/24/13 [History ] Multivitamin [Multi-Vitamin Daily] 1 each PO DAILY 08/24/13 [History] Lansoprazole [Prevacid] 30 mg PO DAILY 12/24/15 [History] Levobunolol [Betagan 0.5% Ophth Soln] 1 drop EYEBOTH BID 02/13/16 [History] Docusate Sodium [Colace] 100 mg PO DAILY PRN 05/30/16 [History] Metoprolol Succinate [Toprol XL] 50 mg PO DAILY 05/30/16 [History] Carboxymethyl/Glycerin/Poly80 [Refresh Optive Advanced Drops] 1 - 2 drop EYEBOTH Q4H PRN 05/31/16 [History] Levothyroxine Sodium [Synthroid] 88 mcg PO DAILY 08/04/16 [History] Losartan [Cozaar] 50 mg PO BEDTIME 08/12/16 [History] Cholecalciferol (Vitamin D3) [Vitamin D3] 2,000 unit PO DAILY 05/22/17 [History] Cholecalciferol (Vitamin D3) [Vitamin D3] 50,000 unit PO WEEKLY 05/22/17 [ History] Hydrocortisone [Procto-Med Hc] 1 applic RECTAL TID PRN 05/22/17 [History] Levothyroxine [Synthroid] 100 mcg PO ASDIRECTED 05/22/17 [History] Polyethylene Glycol 3350 [MiraLAX] 1 pkt PO DAILY 05/22/17 [History] amLODIPine Besylate [Amlodipine Besylate] 5 mg PO DAILY #30 tablet 05/24/17 [Rx] Past Medical History HEENT History: Reports: Cataract, Glaucoma Cardiovascular History: Reports: Blood Clots/VTE/DVT, High Cholesterol, Hypertension Gastrointestinal History: Reports: Chronic Constipation, Diverticulosis, GERD, Hemorrhoids Genitourinary History: Reports: UTI, Recurrent 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: Reports: Musculoskeletal History: Reports: Arthritis, Osteoarthritis Psychiatric History: Reports: Anxiety Endocrine/Metabolic History: Reports: Hypothyroidism Dermatologic History: Reports: Other (See Below) Other Dermatologic History: chronic rash from medication she takes - Infectious Disease History Infectious Disease History: Reports: Chicken Pox, Measles, Mumps, Pertussis ( Whooping Cough) - Past Surgical History Head Surgeries/Procedures: Reports: None HEENT Surgical History: Reports: Adenoidectomy, Cataract Surgery, Tonsillectomy Cardiovascular Surgical History: Reports: None GI Surgical History: Reports: Appendectomy, Colonoscopy, EGD, Hernia, Abdominal Female Surgical History: Reports: Section, Hysterectomy Other Female Surgeries/Procedures: lumpectomy Endocrine Surgical History: Reports: None Neurological Surgical History: Reports: None Musculoskeletal Surgical History: Reports: Knee Replacement Dermatological Surgical History: Reports: None Social & Family History - Family History HEENT: Reports: None Cardiac: Reports: High Cholesterol GI: Reports: None : Reports: None OBGYN: Reports: None Musculoskeletal: Reports: None Neurological: Reports: None, CVA Psychiatric: Reports: None Endocrine/Metabolic: Reports: None Hematologic: Reports: None Dermatologic: Reports: None Oncologic: Reports: Brain, Breast, Lung - Tobacco Use Smoking Status *Q: Former Smoker Years of Tobacco use: 15 Packs/Tins Daily: 1 Used Tobacco, but Quit: Yes Month/Year Tobacco Last Used: 45 years ago Second Hand Smoke Exposure: No - Caffeine Use Caffeine Use: Reports: Coffee - Recreational Drug Use Recreational Drug Use: No ED ROS GENERAL - Review of Systems Review Of Systems: See Below Constitutional: Reports: No Symptoms HEENT: Reports: No Symptoms Respiratory: Reports: No Symptoms Cardiovascular: Reports: No Symptoms Endocrine: Reports: No Symptoms GI/Abdominal: Reports: Abdominal Pain, Constipation : Reports: No Symptoms Musculoskeletal: Reports: No Symptoms Skin: Reports: No Symptoms Neurological: Reports: No Symptoms Psychiatric: Reports: No Symptoms Hematologic/Lymphatic: Reports: No Symptoms Immunologic: Reports: No Symptoms ED EXAM, GI/ABD - Physical Exam Exam: See Below Exam Limited By: No Limitations General Appearance: Alert, WD/WN, No Apparent Distress Throat/Mouth: Normal Inspection, Normal Lips, Normal Teeth, Normal Gums, Normal Oropharynx, Normal Voice, No Airway Compromise Head: Atraumatic, Normocephalic Neck: Normal Inspection, Supple, Non-Tender, Full Range of Motion Respiratory/Chest: No Respiratory Distress, Lungs Clear, Normal Breath Sounds, No Accessory Muscle Use, Chest Non-Tender Cardiovascular: Normal Peripheral Pulses, Regular Rate, Rhythm, No Edema, No Gallop, No JVD, No Murmur, No Rub GI/Abdominal Exam: Normal Bowel Sounds, Soft, No Organomegaly, No Distention, No Abnormal Bruit, No Mass, Tender (left lower quadrant). No: Non-Tender Back Exam: Normal Inspection, Full Range of Motion, NT Extremities: Normal Inspection, Normal Range of Motion, Non-Tender, Normal Capillary Refill, No Pedal Edema Neurological: Alert, Oriented, CN II-XII Intact, Normal Cognition, Normal Gait, Normal Reflexes, No Motor/Sensory Deficits Psychiatric: Normal Affect, Normal Mood Skin Exam: Warm, Dry, Intact, Normal Color, No Rash Lymphatic: No Adenopathy Course - Vital Signs Last Recorded V/S: Last Vital Signs Temp 35.8 C 06/29/17 15:00 Pulse 64 06/29/17 16:55 Resp 20 06/29/17 16:55 BP 144/37 H 06/29/17 16:55 Pulse Ox 97 06/29/17 16:55 - Orders/Labs/Meds Orders: Active Orders 24 hr Category Date Time Status Peripheral IV Care [RC] . DIRECTED Care 06/29/17 15:09 Abdomen Pelvis w Cont [CT] Stat Exams 06/29/17 15:08 Ordered UA W/MICROSCOPIC [URIN] Stat Lab 06/29/17 15:40 Results Sodium Chloride 0.9% [Normal Saline] 50 ml Med 06/29/17 15:45 Active IV ASDIRECTED Sodium Chloride 0.9% [Syrex Flush] Med 06/29/17 15:08 Active 5 ml FLUSH Q8HR PRN Peripheral IV Insertion Adult [OM.PC] Routine Oth 06/29/17 15:08 Ordered Medication Orders Sodium Chloride (Normal Saline) 50 mls @ 3 mls/sec IV ASDIRECTED ALEX Last Admin: 06/29/17 16:40 Dose: 3 mls/sec Sodium Chloride (Syrex Flush) 5 ml FLUSH Q8HR PRN PRN Reason: Keep Vein Open Labs: Laboratory Tests 06/29/17 06/29/17 06/29/17 Range/Units 15:25 15:25 15:40 WBC 7.5 (5.0-10.0) 10^3/uL RBC 3.88 (3.80-5.50) 10^6/uL Hgb 11.5 L (12.0-16.0) g/dL Hct 34.7 L (37.0-47.0) % MCV 89.5 (82.0-92.0) fL MCH 29.8 (27.0-31.0) pg MCHC 33.3 (32.0-36.0) g/dL RDW 13.6 (11.5-14.5) % Plt Count 305 H (150-300) 10^3/uL MPV 7.5 (7.4-10.4) fL Neut % (Auto) 67.3 (50.0-70.0) % Lymph % (Auto) 20.5 (20.0-40.0) % [place] % (Auto) 10.3 H (2.0-8.0) % Eos % (Auto) 1.8 (1.0-3.0) % Baso % (Auto) 0.1 (0.0-1.0) % Neut # (Auto) 5.1 (2.5-7.0) 10^3/uL Lymph # (Auto) 1.5 (1.0-4.0) 10^3/uL [place] # (Auto) 0.8 (0.1-0.8) 10^3/uL Eos # (Auto) 0.1 (0.1-0.3) 10^3/uL Baso # (Auto) 0.0 (0.0-0.1) 10^3/uL Sodium 140 (136-145) mmol/L Potassium 4.6 (3.3-5.3) mmol/L Chloride 104 (98-115) mmol/L Carbon Dioxide 27.6 (21.0-32.0) mmol/L BUN 20 (6-25) mg/dL Creatinine 0.77 (0.51-1.17) mg/dL Est Cr Clr Drug Dosing TNP Estimated GFR (MDRD) > 60 mL/min Glucose 126 H (70-110) mg/dL Calcium 8.2 L (8.7-10.3) mg/dL Total Bilirubin 0.2 (0.2-1.0) mg/dL AST 16 (15-37) U/L ALT 21 (12-78) U/L Alkaline Phosphatase 79 (46-116) IU/L Total Protein 6.5 (6.4-8.2) g/dL Albumin 3.22 (3.00-4.80) g/dL Lipase 203 (73-393) U/L Specimen Type Urinvoid Urine Color Yellow (YELLOW) Urine Appearance Slightly cloudy H (CLEAR) Urine pH 6.5 (5.0-9.0) Ur Specific [place] 1.010 (1.005-1.030) Urine Protein Negative (NEGATIVE) mg/dL Urine Glucose (UA) Negative (NEGATIVE) mg/dL Urine Ketones Negative (NEGATIVE) mg/dL Urine Occult Blood Trace-lysed H (NEGATIVE) Urine Nitrite Negative (NEGATIVE) Urine Bilirubin Negative (NEGATIVE) Urine Urobilinogen 0.2 (0.2-1.0) E.U./dL Ur Leukocyte Esterase Small H (NEGATIVE) Urine RBC 0-5 /HPF Urine WBC 40-50 H /HPF Ur Epithelial Cells Few /LPF Urine Bacteria Many H (NONE TO FEW) /HPF Meds: Medications Generic Name Dose Route Start Last Admin Trade Name Freq PRN Reason Stop Dose Admin Sodium Chloride 50 mls @ 3 mls/sec 06/29/17 15:45 06/29/17 16:40 Normal Saline IV 3 mls/sec ASDIRECTED ALEX Administration Sodium Chloride 5 ml 06/29/17 15:08 Syrex Flush FLUSH Q8HR PRN Keep Vein Open Discontinued Medications Generic Name Dose Route Start Last Admin Trade Name Freq PRN Reason Stop Dose Admin Iopamidol 75 ml 06/29/17 15:43 06/29/17 16:40 Isovue-300 (61%) IV 75 ml . DIRECTED PRN Administration FOR RADIOLOGY EXAM - Radiology Interpretation Free Text/Narrative:: CT abd/pelvis- right lower quadrant spigelian hernia containing unobstructing loops of small bowel with inflammatory changes Departure - Departure Time of Disposition: 17:37 Disposition: DC/Tfer to Acute Hospital 02 Condition: Fair Clinical Impression: Incarcerated hernia of abdominal cavity Abdominal pain Qualifiers: Abdominal location: left upper quadrant Qualified Code(s): R10.12 - Left upper quadrant pain Urinary tract infection Qualifiers: Encounter type: initial encounter - Discharge Information Referrals: Brittany Marie PA-C [Primary Care Provider] - Forms: ED Department Discharge, Interfacility Transfer EMTALA - My Orders Last 24 Hours: My Active Orders 06/29/17 15:08 Abdomen Pelvis w Cont [CT] Stat Sodium Chloride 0.9% [Syrex Flush] 5 ml FLUSH Q8HR PRN Peripheral IV Insertion Adult [OM.PC] Routine 06/29/17 15:09 Peripheral IV Care [RC] . DIRECTED 06/29/17 15:40 UA W/MICROSCOPIC [URIN] Stat 06/29/17 15:45 Sodium Chloride 0.9% [Normal Saline] 50 ml IV ASDIRECTED - Assessment/Plan Last 24 Hours: My Active Orders 06/29/17 15:08 Abdomen Pelvis w Cont [CT] Stat Sodium Chloride 0.9% [Syrex Flush] 5 ml FLUSH Q8HR PRN Peripheral IV Insertion Adult [OM.PC] Routine 06/29/17 15:09 Peripheral IV Care [RC] . DIRECTED 06/29/17 15:40 UA W/MICROSCOPIC [URIN] Stat 06/29/17 15:45 Sodium Chloride 0.9% [Normal Saline] 50 ml IV ASDIRECTED Assessment:: 1. abdominal pain- rule out incarcerated hernia 2. urinary tract infection Plan: 1. discussed case with general surgery- Dr Clayton in [place] who accepted patient for transfer and further evaluation of abdominal pain
[2017-06-29] MEDS ORDERED: Iopamidol 612 MG/ML 75 ML Bottle IV PRN (15:43)
[2017-06-29] MEDS ORDERED: Sodium Chloride 0.9% 50 ML IV SCH (15:45)
[2017-06-29 15:50] LABS: CHLORIDE,CL 104 mmol/L (98-115); SODIUM,NA 140 mmol/L (136-145)
[2017-06-29 16:56] VITALS: BP 144/37
[2017-06-29] MEDS ORDERED: Sodium Chloride 0.9% 1,000 ML IV SCH (18:15)
== END 2017-06-29 18:25 ==
LOC: KA.ED 14:40
DX: N39.0 Urinary tract infection, site not specified (principal); K46.0 Unspecified abdominal hernia with obstruction, without gangrene; I10 Essential (primary) hypertension; E78.00 Pure hypercholesterolemia, unspecified; K21.9 Gastro-esophageal reflux disease without esophagitis; M19.90 Unspecified osteoarthritis, unspecified site; E03.9 Hypothyroidism, unspecified; Z79.899 Other long term (current) drug therapy; Z79.82 Long term (current) use of aspirin; Z87.891 Personal history of nicotine dependence; Z88.0 Allergy status to penicillin; Z88.2 Allergy status to sulfonamides; Z91.09 Other allergy status, other than to drugs and biological substances
CPT/HCPCS: 36415; 74177; 80053; 81001; 83690; 85025; 99284; 99285; J7050; Q9967